=== PATIENT | female | born 1975 ===

== ENCOUNTER 2017-02-09 11:48 | Emergency (ER) | payer MEDICAID ==
[2017-02-09 11:55] VITALS: BMI 30.9
[2017-02-09] MEDS ORDERED: Albuterol-Ipratrop 3 mg / 0.5 (3 ml) UD INH STA ×4 (12:03→15:27)
[2017-02-09] MEDS ORDERED: Albuterol-Ipratrop 3 mg / 0.5 (3 ml) UD ONE ×3 (12:03→15:34)
[2017-02-09] MEDS ORDERED: Sodium Chloride 0.9% 1,000 ML IV ONE (12:15)
--- NOTE | 2017-02-09 12:30 | RAD ---
PROCEDURE: CHEST RADIOGRAPH, 1 VIEW HISTORY: Shortness of breath COMPARISON: 08/28/2016 FINDINGS: LUNGS: No focal infiltrate or effusion. PLEURA: No pneumothorax or pleural fluid seen. CARDIOVASCULAR: Normal. OSSEOUS STRUCTURES: Question patchy sclerosis at the right proximal humerus. VISUALIZED UPPER ABDOMEN: Normal. OTHER FINDINGS: None. IMPRESSION: No focal infiltrate or effusion.
[2017-02-09 12:39] LABS: BASO # 0.1 K/uL (0.0-0.2); BASO % 0.8 % (0.0-2.0); EOS # 0.7 K/uL (0.0-0.7); EOS % 8.2 % (0.0-4.0); HEMATOCRIT 40.3 % (34.0-47.0); LYMPH # 2.4 K/uL (1.0-4.3); LYMPH % 28.4 % (20.0-40.0); MEAN CELL VOLUME 83.8 fL (81.0-99.0); MEAN CORPUSCULAR HEMOGLOBIN 26.9 pg (27.0-31.0); MEAN CORPUSCULAR HGB CONC 32.1 g/dL (33.0-37.0); MONO # 0.5 K/uL (0.0-0.8); MONO % 6.4 % (0.0-10.0); RED CELL DISTRIBUTION WIDTH 15.2 % (11.5-14.5); WHITE BLOOD COUNT 8.4 K/uL (4.8-10.8)
[2017-02-09 12:47] LABS: CHLORIDE 102 mmol/L (98-107); SODIUM 137 mmol/L (132-148)
[2017-02-09 12:49] LABS: ALB/GLOB RATIO 1.1 (1.0-2.1); AST/SGOT 21 U/L (14-36); BILIRUBIN,TOTAL 0.6 mg/dL (0.2-1.3); CARBON DIOXIDE 26 mmol/L (22-30); GFR AFRICAN-AMERICAN > 60; TOTAL PROTEIN 7.1 g/dL (6.3-8.3)
[2017-02-09 12:50] LABS: ALKALINE PHOSPHATASE 130 U/L (38-126); ALT/SGPT 15 U/L (9-52); BLOOD UREA NITROGEN 8 mg/dL (7-17); CALCIUM 8.3 mg/dl (8.6-10.4); GLUCOSE,RANDOM 103 mg/dL (65-105)
[2017-02-09] MEDS ORDERED: Magnesium Sulfate 1 gm in D5W 1 GM/100 ML BAG IV ONE ×2 (13:00→14:00)
[2017-02-09 13:04] LABS: RBC URINE 24 /hpf (0-3); URINE BILIRUBIN NEGATIVE (NEGATIVE); URINE BLOOD 3+ (NEGATIVE); URINE COLOR Yellow (YELLOW); URINE GLUCOSE (UA) NORMAL (Normal); URINE KETONE NEGATIVE (NEGATIVE); URINE LEUKOCYTE ESTERASE 2+ Leu/uL (Negative); URINE PROTEIN NEGATIVE (NEGATIVE); URINE UROBILINOGEN NORMAL mg/dL (0.2-1.0); WBC URINE 18 /hpf (0-5)
--- NOTE | 2017-02-09 13:31 | C.PDOC ---
History Of Present Illness 41-year-old female PMHx includes Asthma, presents to the emergency department with complaints of shortness of breath, cough and wheezing. Patient states symptoms are consistent with prior asthma exacerbationS. Pt admits to hx of prior admissions for asthma. Hx limited due to clinical condition. Time Seen by Provider: 02/09/17 12:00 Chief Complaint (Nursing): Shortness Of Breath History Per: Patient History/Exam Limitations: clinical condition Current Symptoms Are (Timing): Still Present Current Respiratory Medications: See Home Med List Severity: Moderate Past Medical History Reviewed: Historical Data, Nursing Documentation, Vital Signs Vital Signs: Last Vital Signs Temp 98.3 F 02/09/17 16:26 Pulse 82 02/09/17 16:26 Resp 18 02/09/17 16:26 BP 141/83 02/09/17 16:26 Pulse Ox 96 02/09/17 17:38 - Medical History PMH: Anxiety, Asthma (HOSPITALIZED NOVEMBER 2015), Bronchitis, Depression (NOT ON MED. AT THIS TIME(01/02/16)), Fractures (Toe (3 years ago)), Gall Bladder Disease, Kidney Stones ([place]ER [place] Pneumonia, Chronic Kidney Disease, Rheumatoid Arthritis Surgical History: Cholecystectomy - [facility] Procedures INFLUENZA VACCINATION (08/21/13) NON-INVASIVE MECHANICAL VENTILATION (12/11/14) VACCINATION NEC (08/21/13) Family History: States: No Known Family Hx - Social History Hx Tobacco Use: No Hx Alcohol Use: Yes Hx Substance Use: No - Immunization History Hx Tetanus Toxoid Vaccination: No Hx Influenza Vaccination: Yes (2013) Hx Pneumococcal Vaccination: Yes (08/21/2013) Review Of Systems Except As Marked, All Systems Reviewed And Found Negative. Constitutional: Negative for: Fever Cardiovascular: Negative for: Chest Pain Respiratory: Positive for: Cough, Shortness of Breath, Wheezing Gastrointestinal: Positive for: Vomiting Physical Exam - Physical Exam Appears: Non-toxic, Other (Mild to moderate respiratory distress. Speaking in single words.) Skin: Warm, Dry, No Rash Head: Normacephalic Eye(s): bilateral: Normal Inspection Oral Mucosa: Moist Lips: Normal Appearing Cardiovascular: Rhythm Regular Respiratory: Accessory Muscle Use (mild), No Rales, No Rhonchi, Wheezing ( diffuse, expiratory wheezing B/L) Gastrointestinal/Abdominal: Normal Exam, Bowel Sounds, Soft, No Tenderness Extremity: Normal ROM, No Pedal Edema, No Calf Tenderness Neurological/Psych: Oriented x3 ED Course And Treatment - Laboratory Results Result Diagrams: 02/09/17 12:34 02/09/17 12:34 O2 Sat by Pulse Oximetry: 96 (RA) Pulse Ox Interpretation: Normal - Radiology CXR: Interpreted by Me, Viewed By Me CXR Interpretation: Yes: No Acute Disease (no infiltrates/effusions) Progress Note: Blood work, EKG, CXR, and UA/Upreg ordered and reviewed. Patient given IV solumedrol, multiple nebulizer treatments. 16:00- Patient reassessed, states she is feeling significantly better. On exam, she has good air entry B/ L without wheezing or accessory muscle use. CXR (-) for infiltrates, and blood work unremarkable. Peak flow approx 350, which is significantly improved from prior (200). Patient would like to be discharged home, was given Rx for prednisone, albuterol inhaler, albuterol ampules and tessalon. She was instructed to follow up with PMD in 1-2 days, and she understands she should return to ED if symptoms worsen. Reevaluation Time: 12:15 Reassessment Condition: Improved (On reassessment, patient mildly improved. On exam, she has expiratory wheezing B/L without accessory muscle use. IV Mag sulfate 2G and neb treatments ordered.) Critical Care Time - Critical Care Note Total Time (in mins): 40 Documented critical care: time excludes all time spent performing seperately billable procedures. Disposition Counseled Patient/Family Regarding: Studies Performed, Diagnosis, Need For Followup, Rx Given - Disposition Referrals: Hong Medel MD [Non-Staff] - Disposition: HOME/ ROUTINE Disposition Time: 16:15 Condition: STABLE Additional Instructions: FOLLOW UP WITH YOUR DOCTOR IN 1-2 DAYS USE MEDICATIONS DIRECTED RETURN TO ER IMMEDIATELY IF SYMPTOMS WORSEN Prescriptions: Albuterol 0.5% [Albuterol 0.5% Inhal Bekah (2.5 mg/0.5 ml) UD] 2.5 mg IH Q6 PRN # 1 bottle PRN Reason: Wheezing Albuterol HFA [Ventolin HFA 90 mcg/actuation (8 g)] 0.09 mg IH Q4 PRN #1 puff PRN Reason: Wheezing Benzonatate [Tessalon Perles] 100 mg PO BID PRN #15 sgl PRN Reason: Cough predniSONE [predniSONE Tab] 40 mg PO DAILY #8 tab Instructions: Asthma (ED) Print Language: GREEK - POA Present On Arrival: None - Clinical Impression Clinical Impression: Asthma exacerbation - Scribe Statement The provider has reviewed the documentation as recorded by the Lauraibvinod Melendez All medical record entries made by the Lauraibe were at my direction and personally dictated by me. I have reviewed the chart and agree that the record accurately reflects my personal performance of the history, physical exam, medical decision making, and the department course for this patient. I have also personally directed, reviewed, and agree with the discharge instructions and disposition.
[2017-02-09 16:26] VITALS: BP 141/83; PULSE 82; RESP 18; TEMP 98.3
[2017-02-09 17:38] VITALS: O2SAT 96
--- NOTE | 2017-02-14 18:16 | CARD ---
APPROVED REPORT EKG Measurement Heart [id number] <Conclusion> Normal sinus rhythm with sinus arrhythmia Normal ECG
== END 2017-02-09 16:27 | disposition home or self-care (01) ==
LOC: C.ER 11:48 → UNDOADMOB 13:39 → C.6T 13:39 → C.ER 16:27
DX: J45.901 Unspecified asthma with (acute) exacerbation (principal)
CPT/HCPCS: 71010; 80053; 81001; 84484; 84703; 85025; 87040; 94640; 96361; 96365; 96366; 96375; 99285; J2930; J3475; J7040

== ENCOUNTER 2017-04-29 12:06 | Observation (INO) | payer MEDICAID ==
[2017-04-29 12:06] VITALS: BMI 30.9
[2017-04-29] MEDS ORDERED: Albuterol-Ipratrop 3 mg / 0.5 (3 ml) UD ONE (12:15)
[2017-04-29] MEDS ORDERED: Albuterol-Ipratrop 3 mg / 0.5 (3 ml) UD INH STA ×4 (12:22→12:56)
[2017-04-29] MEDS ORDERED: MethylPREDNISolone 40 mg Vial IVP STA (12:23)
[2017-04-29] MEDS ORDERED: Magnesium Sulfate 1 gm in D5W 1 GM/100 ML BAG IVPB ONE ×2 (12:32→13:20)
--- NOTE | 2017-04-29 12:33 | C.PDOC ---
History Of Present Illness A 41 y/o F with hx of asthma nad Hx of shoulder surgery a week prior, c/o SOB that occurred today. Patient notes while walking up the stairs today she felt an acute SOB, where she then used her nebulizer with mild relief. Denies fever, chills, cough, URI symptoms, or any other complaints. Time Seen by Provider: 04/29/17 12:23 Chief Complaint (Nursing): Respiratory Distress History Per: Patient History/Exam Limitations: no limitations Onset/Duration Of Symptoms: Hrs Current Symptoms Are (Timing): Still Present Initiating Event: Other (Walking up the stairs) Current Respiratory Medications: Albuterol Severity: Mild Recent travel outside of the [place]: No Additional History Per: Patient Past Medical History Reviewed: Historical Data, Nursing Documentation, Vital Signs Vital Signs: Last Vital Signs Temp 97.8 F 04/29/17 14:38 Pulse 79 04/29/17 14:38 Resp 20 04/29/17 14:38 BP 125/77 04/29/17 14:38 Pulse Ox 94 L 04/29/17 14:38 - Medical History PMH: Anxiety, Asthma (HOSPITALIZED NOVEMBER 2015), Bronchitis, Depression (NOT ON MED. AT THIS TIME(01/02/16)), Fractures (Toe (3 years ago)), Gall Bladder Disease, Kidney Stones (LASER [place].), Pneumonia, Chronic Kidney Disease, Rheumatoid Arthritis Surgical History: Cholecystectomy - [facility] Procedures INFLUENZA VACCINATION (08/21/13) NON-INVASIVE MECHANICAL VENTILATION (12/11/14) VACCINATION NEC (08/21/13) Family History: States: Unknown Family Hx - Social History Hx Tobacco Use: No Hx Alcohol Use: Yes Hx Substance Use: No - Immunization History Hx Tetanus Toxoid Vaccination: No Hx Influenza Vaccination: Yes Hx Pneumococcal Vaccination: Yes (08/21/2013) Review Of Systems Except As Marked, All Systems Reviewed And Found Negative. Constitutional: Negative for: Fever, Chills ENT: Negative for: Ear Pain, Nose Discharge, Nose Congestion, Throat Pain Cardiovascular: Negative for: Chest Pain, Palpitations Respiratory: Positive for: Shortness of Breath, SOB with Excertion, Wheezing. Negative for: Cough Gastrointestinal: Negative for: Nausea, Vomiting, Abdominal Pain, Diarrhea, Constipation Genitourinary: Negative for: Dysuria Skin: Negative for: Rash Neurological: Negative for: Weakness Psych: Negative for: Anxiety Physical Exam - Physical Exam Appears: Well, Non-toxic, No Acute Distress Skin: Warm, Dry Head: Atraumatic, Normacephalic Eye(s): bilateral: Normal Inspection, PERRL, EOMI Oral Mucosa: Moist Neck: Supple Chest: Symmetrical Cardiovascular: Rhythm Regular (Tachycardic) Respiratory: Decreased Breath Sounds, Accessory Muscle Use (Tachypnea), Wheezing (Bilateral) Gastrointestinal/Abdominal: Soft, No Tenderness, No Mass, No Distention Back: Normal Inspection, No CVA Tenderness Extremity: Normal ROM (x4) Neurological/Psych: Oriented x3, Normal Speech, Normal Cognition ED Course And Treatment - Laboratory Results Result Diagrams: 04/29/17 12:39 04/29/17 12:39 O2 Sat by Pulse Oximetry: 97 (Nebulizer treatment) Pulse Ox Interpretation: Normal Medical Decision Making Medical Decision Making: Impression: A 41 y/o F c/o SOB that occurred today. Hx of shoulder surgery a week prior. Plans: * Blood work up * CXR * Albuterol * Nebulizer treatment * Reassess Symptoms appears consistent with asthma exacerbation but will r/o PE due to recent surgery. 12:56PM Cxray negative 1:10PM D-dimer negative 2:30PM Persistent wheezing after 4 duonebs, solumedrol and Mg, O2 sat 94% RA. Transfer to med/sx under Dr. Haddad Disposition - Disposition Disposition: HOSPITALIZED Disposition Time: 14:30 Condition: FAIR - Clinical Impression Clinical Impression: Elevated LFTs, Asthma, Asthma exacerbation - Scribe Statement The provider has reviewed the documentation as recorded by the Lauraibvinod rose All medical record entries made by the Lauraibvinod were at my direction and personally dictated by me. I have reviewed the chart and agree that the record accurately reflects my personal performance of the history, physical exam, medical decision making, and the department course for this patient. I have also personally directed, reviewed, and agree with the discharge instructions and disposition.
[2017-04-29] MEDS: Magnesium Sulfate 1 gm in D5W 1 GM/100 ML BAG IVPB SCH ×2 (12:42→13:27)
[2017-04-29 12:43] LABS: BASO # 0.1 K/uL (0.0-0.2); BASO % 0.7 % (0.0-2.0); EOS # 0.6 K/uL (0.0-0.7); EOS % 6.4 % (0.0-4.0); HEMOGLOBIN 13.1 g/dL (11.0-16.0); LYMPH # 2.5 K/uL (1.0-4.3); MEAN CELL VOLUME 85.5 fL (81.0-99.0); MEAN CORPUSCULAR HEMOGLOBIN 28.3 pg (27.0-31.0); MEAN CORPUSCULAR HGB CONC 33.2 g/dL (33.0-37.0); MEAN PLATELET VOLUME 7.5 fL (7.2-11.7); MONO # 0.6 K/uL (0.0-0.8); MONO % 6.4 % (0.0-10.0); NEUT # 5.5 K/uL (1.8-7.0); NEUT % 59.5 % (50.0-75.0); RBC 4.63 Mil/uL (3.80-5.20); RED CELL DISTRIBUTION WIDTH 15.1 % (11.5-14.5); WHITE BLOOD COUNT 9.3 K/uL (4.8-10.8)
--- NOTE | 2017-04-29 12:50 | RAD ---
HISTORY: chest pain COMPARISON: Chest x-ray performed 02/09/17 TECHNIQUE: Chest, one view. FINDINGS: Examination limited by habitus. LUNGS: No focal consolidation. Please note that chest x-ray has limited sensitivity for the detection of pulmonary masses. PLEURA: No significant pleural effusion identified. No definite pneumothorax . CARDIOVASCULAR: The cardiomediastinal silhouette appears within normal limits of size. OSSEOUS STRUCTURES: No acute osseous abnormality identified. VISUALIZED UPPER ABDOMEN: Unremarkable. OTHER FINDINGS: None. IMPRESSION: No focal consolidation, significant pleural effusion, or definite pneumothorax identified.
[2017-04-29 13:05] LABS: ALBUMIN 3.6 g/dL (3.5-5.0)
[2017-04-29 13:08] LABS: GFR AFRICAN-AMERICAN > 60; GFR NON-AFRICAN AMERICAN > 60
[2017-04-29 13:09] LABS: ALT/SGPT 55 U/L (9-52); AST/SGOT 43 U/L (14-36); BLOOD UREA NITROGEN 10 mg/dL (7-17); CALCIUM 8.7 mg/dl (8.6-10.4)
[2017-04-29] MEDS ORDERED: Morphine 4 MG/ML VIAL ONE (13:29)
--- NOTE | 2017-04-29 16:30 | CP.PCM.PN ---
Subjective - Date & Time of Evaluation Date of Evaluation: 04/29/17 Time of Evaluation: 16:27 - Subjective Subjective: Medicine note for Dr. Haddad's Service cc: "shortness of breath" HPI: Patient is a 39 yo female with a Hx of asthma, RA, and depression/anxiety who presents to the ED with acute asthma exacerbation that did not respond to home treatment with nebulizer or ventolin inhaler. The patient states that this afternoon she became acutely short of breath. She took her home ventolin inhaler but her breathing did not improve. This patient has multiple previous hospitalizations for asthma exacerbation. She has never been intubation but has had to used bipap before. She denies any URI symptoms, cough, sore, dysphagia, or odynophagia. She denies any fever, chills, vomiting, diarrhea, constipation, dysuria, urinary frequency, kidney pain, change in vision, change in hearing, dizziness, chest pain, numbness, tingling, and focal weakness. 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 by Dr. Escobar. She has been on antibiotics at home for this but does not know what she is taking. 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 Haddad. All management as per Dr. Haddad.
[2017-04-29] MEDS: oxyCODONE 5 mg Immediate Release Tab PO PRN (18:18)
[2017-04-29] MEDS: MethylPREDNISolone 40 mg Vial IVP SCH (18:18)
[2017-04-29] MEDS ORDERED: Bisacodyl 5mg EC Tab PO ONE (18:39)
[2017-04-29] MEDS ORDERED: Azithromycin 500 MG in Sodium Chloride 0.9% 250 ML IVPB SCH (19:00)
[2017-04-29] MEDS: Albuterol-Ipratrop 3 mg / 0.5 (3 ml) UD INH SCH (20:21)
[2017-04-29] MEDS: oxyCODONE 10 mg ER Tab (oxyCONTIN) PO SCH (21:45)
[2017-04-30 01:20] VITALS: RESP 20; O2SAT 94
[2017-04-30] MEDS: Albuterol-Ipratrop 3 mg / 0.5 (3 ml) UD INH SCH ×3 (01:22→14:00)
[2017-04-30] MEDS: MethylPREDNISolone 40 mg Vial IVP SCH ×2 (01:59→09:39)
[2017-04-30] MEDS: oxyCODONE 5 mg Immediate Release Tab PO PRN (02:05)
[2017-04-30 07:59] LABS: BASO % 0.1 % (0.0-2.0); HEMOGLOBIN 12.4 g/dL (11.0-16.0); LYMPH # 1.1 K/uL (1.0-4.3); LYMPH % 7.6 % (20.0-40.0); MEAN CELL VOLUME 85.2 fL (81.0-99.0); MEAN CORPUSCULAR HEMOGLOBIN 28.2 pg (27.0-31.0); MEAN CORPUSCULAR HGB CONC 33.1 g/dL (33.0-37.0); MEAN PLATELET VOLUME 8.1 fL (7.2-11.7); MONO # 0.4 K/uL (0.0-0.8); MONO % 2.5 % (0.0-10.0); NEUT # 13.6 K/uL (1.8-7.0); NEUT % 89.8 % (50.0-75.0); PLATELET COUNT 362 K/uL (130-400); RBC 4.38 Mil/uL (3.80-5.20)
[2017-04-30 08:01] VITALS: BP 127/77; TEMP 98
[2017-04-30 08:02] LABS: ALBUMIN 3.6 g/dL (3.5-5.0)
[2017-04-30 08:05] LABS: AST/SGOT 31 U/L (14-36); BLOOD UREA NITROGEN 11 mg/dL (7-17); GFR AFRICAN-AMERICAN > 60; GFR NON-AFRICAN AMERICAN > 60
[2017-04-30 08:06] LABS: ALT/SGPT 43 U/L (9-52)
[2017-04-30 08:23] LABS: WHITE BLOOD COUNT 15.1 K/uL (4.8-10.8)
[2017-04-30 08:28] VITALS: PULSE 80
[2017-04-30] MEDS: oxyCODONE 10 mg ER Tab (oxyCONTIN) PO SCH (09:37)
[2017-04-30] MEDS: Enoxaparin 40 mg Syringe SC SCH ×2 (09:39→09:46)
[2017-04-30 10:49] LABS: LYMPHOCYTE 8 % (20-40); MONOCYTE 2 % (0-10); NEUTROPHIL 90 % (50-75); PLATELET ESTIMATE NORMAL (NORMAL); TOTAL CELLS COUNTED 100
--- NOTE | 2017-04-30 11:49 | CP.PCM.PN ---
Subjective - Date & Time of Evaluation Date of Evaluation: 04/30/17 Time of Evaluation: 09:05 - Subjective Subjective: PGY-[address] Haddad Patient seen and examined at bedside. No acute events overnight. Patient reports her shortness of breath and cough improved. Patient has pain at her right shoulder from her recent orthopedic surgery. Patient states she has an appointment to see her surgeon on Wednesday. Patient denies having headache, fever , chills, SOB, chest pain, nausea, vomiting, or diarrhea. Objective - Vital Signs/Intake and Output Vital Signs (last 24 hours): Temp Pulse Resp BP Pulse Ox 98 F 80 20 127/77 94 L 04/30/17 08:00 04/30/17 08:26 04/30/17 08:00 04/30/17 08:00 04/30/17 08:00 Intake and Output: 04/30/17 04/30/17 06:59 18:59 Intake Total 1610 Balance 1610 - Medications Medications: Current Medications Albuterol/Ipratropium (Duoneb 3 Mg/0.5 Mg (3 Ml) Ud) 3 ml INH RQ6 [facility] Last Admin: 04/30/17 07:56 Dose: 3 ml Enoxaparin Sodium (Lovenox) 40 mg SC DAILY [facility] Last Admin: 04/30/17 09:46 Dose: Not Given Azithromycin 500 mg/ Sodium (Chloride) 250 mls @ 250 mls/hr IVPB Q24H [facility] Last Admin: 04/29/17 20:04 Dose: 250 mls/hr Methylprednisolone (Solu-Medrol) 40 mg IVP Q12 [facility] Oxycodone HCl (Oxycontin Extended Release Tab) 10 mg PO Q12 [facility] Stop: 05/02/17 22:01 Last Admin: 04/30/17 09:37 Dose: 10 mg Oxycodone HCl (Oxycodone Immediate Release Tab) 5 mg PO Q4H PRN PRN Reason: FOR BREAKTHROUGH PAIN Last Admin: 04/30/17 02:05 Dose: 5 mg Pantoprazole Sodium (Protonix Inj) 40 mg IVP DAILY [facility] Last Admin: 04/30/17 09:39 Dose: 40 mg - Labs Labs: 04/30/17 07:49 04/30/17 07:49 - Constitutional Appears: Well, No Acute Distress - Head Exam Head Exam: ATRAUMATIC, NORMAL INSPECTION - Eye Exam Eye Exam: Normal appearance - ENT Exam ENT Exam: Mucous Membranes Moist - Neck Exam Neck Exam: Normal Inspection - Respiratory Exam Respiratory Exam: Clear to Ausculation Bilateral, NORMAL BREATHING PATTERN. absent: Wheezes, Respiratory Distress - Cardiovascular Exam Cardiovascular Exam: REGULAR RHYTHM, +S1, +S2. 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 Haddad. All management as per Dr. Haddad.
[2017-04-30] MEDS ORDERED: MethylPREDNISolone 40 mg Vial IVP SCH (22:00)
--- NOTE | 2017-05-02 02:53 | HP ---
HISTORY OF PRESENT ILLNESS: A 41-year-old female with chief complaint of weakness, fatigue, tiredness and shortness of breath. The patient came to the hospital, advised admission. PHYSICAL EXAMINATION GENERAL: The patient is awake, alert and oriented. VITAL SIGNS: Temperature 98 and pulse is 74. HEENT: Normal limits. NECK: Supple. CHEST: Symmetrical. HEART: Regular. ABDOMEN: Soft. EXTREMITIES: No edema. IMPRESSION: The patient suffers from bronchial asthma, bronchitis. The patient on bed rest, supportive care. Victorino Haddad MD
== END 2017-04-30 15:20 | disposition home or self-care (01) ==
LOC: C.ER 12:06 → C.9E 14:29 → C.3T 15:58
PROVIDERS: ADMIT Internal Medicine Pulmonary Disease; ATTEND Internal Medicine Pulmonary Disease
DX: J45.901 Unspecified asthma with (acute) exacerbation (principal); F41.9 Anxiety disorder, unspecified; M06.9 Rheumatoid arthritis, unspecified
CPT/HCPCS: 36415; 71010; 80053; 85025; 85378; 94640; 96365; 96374; 99285; C9113; G0378; J0456; J2270; J2920; J3475; J7050

== ENCOUNTER 2017-10-20 15:45 | Emergency (ER) | payer MEDICAID ==
[2017-10-20 15:46] VITALS: BMI 30.9
[2017-10-20 16:32] VITALS: TEMP 98.9
[2017-10-20] MEDS ORDERED: Albuterol-Ipratrop 3 mg / 0.5 (3 ml) UD ONE (16:41)
[2017-10-20] MEDS ORDERED: Albuterol-Ipratrop 3 mg / 0.5 (3 ml) UD INH STA (16:48)
[2017-10-20] MEDS ORDERED: Albuterol 0.083% Inhal Sol (2.5 mg/3 mL) UD IH STA (17:14)
[2017-10-20] MEDS ORDERED: Albuterol 0.083% Inhal Sol (2.5 mg/3 mL) UD ONE (17:22)
[2017-10-20 18:45] VITALS: BP 122/82; PULSE 86; RESP 18; O2SAT 98
--- NOTE | 2017-10-20 19:38 | C.PDOC ---
History Of Present Illness 41 y/o female presents to the ER complaining of runny nose, non-productive cough , wheezing, and pleuritic chest pain which has been present for about 1 week. Patient states that she has been using nebulizer treatment at home w/o relief. Patient denies having fever. Of note, patient states that she has a history of asthma and this is similar to prior exacerbations. Time Seen by Provider: 10/20/17 16:40 Chief Complaint (Nursing): Cough, Cold, Congestion History Per: Patient History/Exam Limitations: no limitations Onset/Duration Of Symptoms: Days Current Symptoms Are (Timing): Still Present Severity: Moderate Past Medical History Reviewed: Historical Data, Nursing Documentation, Vital Signs Vital Signs: Last Vital Signs Temp 98.9 F 10/20/17 18:44 Pulse 86 10/20/17 18:44 Resp 18 10/20/17 18:44 BP 122/82 10/20/17 18:44 Pulse Ox 98 10/20/17 21:33 - Medical History PMH: Anxiety, Asthma (HOSPITALIZED NOVEMBER 2015), Bronchitis, Depression (NOT ON MED. AT THIS TIME(01/02/16)), Fractures (Toe (3 years ago)), Gall Bladder Disease, Kidney Stones (LASER [place].), Pneumonia, Chronic Kidney Disease, Rheumatoid Arthritis Surgical History: Cholecystectomy - [facility] Procedures INFLUENZA VACCINATION (08/21/13) NON-INVASIVE MECHANICAL VENTILATION (12/11/14) VACCINATION NEC (08/21/13) Family History: States: No Known Family Hx - Social History Hx Tobacco Use: No Hx Alcohol Use: No Hx Substance Use: No - Immunization History Hx Tetanus Toxoid Vaccination: No Hx Influenza Vaccination: No Hx Pneumococcal Vaccination: No Review Of Systems Except As Marked, All Systems Reviewed And Found Negative. Constitutional: Negative for: Fever, Chills ENT: Positive for: Nose Discharge Cardiovascular: Positive for: Chest Pain. Negative for: Palpitations Respiratory: Positive for: Cough, Shortness of Breath, Wheezing Gastrointestinal: Negative for: Nausea, Vomiting, Abdominal Pain, Diarrhea Skin: Negative for: Rash Physical Exam - Physical Exam Appears: Well, Non-toxic, No Acute Distress, Other (speaking in full sentences) Skin: Normal Color, Warm, No Rash Eye(s): bilateral: Normal Inspection Nose: Discharge (rhinorrhea) Oral Mucosa: Moist Throat: Normal, No Erythema, No Exudate Neck: Supple Cardiovascular: Rhythm Regular Respiratory: Normal Breath Sounds, No Accessory Muscle Use, No Rales, No Rhonchi , Wheezing (expiratory wheezing bilaterally) Gastrointestinal/Abdominal: Normal Exam, Bowel Sounds, Soft, No Tenderness Extremity: Normal ROM, No Pedal Edema, No Calf Tenderness Neurological/Psych: Oriented x3 ED Course And Treatment O2 Sat by Pulse Oximetry: 98 (RA) Pulse Ox Interpretation: Normal Progress Note: Patient given PO Prednisone and 2 Albuterol nebulizer treatments. Reevaluation Time: 18:30 Reassessment Condition: Improved (On reassessment, patient is resting comfortably, in no distress. She states she feels much better. On exam, she has good air entry B/L without wheezing or accessory muscle use. Peak flow is 350. Patient is comfortable being discharged home with Rxs for prednisone, albuterol, etc. She was instructed to follow up with PMD/clinic in 1-2 days, and understands she should return to ED if symptoms worsen.) Disposition Counseled Patient/Family Regarding: Studies Performed, Diagnosis, Need For Followup, Rx Given - Disposition Referrals: [facility] [Outside] Disposition: HOME/ ROUTINE Disposition Time: 18:30 Condition: STABLE Instructions: Upper Respiratory Infection (ED), Asthma (ED) Forms: [employer] (Hong Konger) Print Language: SWEDISH - Clinical Impression Clinical Impression: Viral disease, Upper respiratory infection, Asthma attack - Scribe Statement The provider has reviewed the documentation as recorded by the Lauraibvinod Haas Provider Attestation: All medical record entries made by the Scribe were at my direction and personally dictated by me. I have reviewed the chart and agree that the record accurately reflects my personal performance of the history, physical exam, medical decision making, and the department course for this patient. I have also personally directed, reviewed, and agree with the discharge instructions and disposition.
--- NOTE | 2017-10-21 12:44 | CARD ---
APPROVED REPORT EKG Measurement Heart [id number] <Conclusion> Normal sinus rhythm with sinus arrhythmia Normal ECG
== END 2017-10-20 18:44 | disposition home or self-care (01) ==
LOC: C.ER 15:45
DX: B34.9 Viral infection, unspecified (principal); J06.9 Acute upper respiratory infection, unspecified; J45.909 Unspecified asthma, uncomplicated

== ENCOUNTER 2017-12-31 11:23 | Emergency (ER) | payer MEDICAID ==
[2017-12-31 11:23] VITALS: BMI 30.9
[2017-12-31 11:28] VITALS: BP 147/85; PULSE 82; TEMP 97.8; O2SAT 98
[2017-12-31] MEDS ORDERED: Lidocaine 5% Patch TD STA (12:02)
--- NOTE | 2017-12-31 12:02 | C.PDOC ---
History Of Present Illness 42 year old female presents to the ED c/o bilateral lower back pain right > left for 3 days. Patient reports pain in her right lower back radiates to her right thigh. back pain worsens with movement. Patient sts she's taking Tylenol with mild temporary improvement. Patient denies fever, chills, abdominal pain, urinary/bowel incontinence, saddle anesthesia, weakness, numbness. Time Seen by Provider: 12/31/17 11:43 Chief Complaint (Nursing): Back Pain History Per: Patient History/Exam Limitations: no limitations Onset/Duration Of Symptoms: Days Current Symptoms Are (Timing): Still Present Quality Of Discomfort: "Pain" Previous Symptoms: Back Pain Exacerbating Factor(s): Movement Recent travel outside of the [place]: No Additional History Per: Patient Past Medical History Reviewed: Historical Data, Nursing Documentation, Vital Signs Vital Signs: Last Vital Signs Temp 97.8 F 12/31/17 11:25 Pulse 82 12/31/17 11:25 Resp 20 12/31/17 12:24 BP 147/85 12/31/17 11:25 Pulse Ox 98 12/31/17 12:43 - Medical History PMH: Anxiety, Asthma (HOSPITALIZED NOVEMBER 2015), Bronchitis, Depression (NOT ON MED. AT THIS TIME(01/02/16)), Fractures (Toe (3 years ago)), Gall Bladder Disease, Kidney Stones (LASER [place] Pneumonia, Chronic Kidney Disease, Rheumatoid Arthritis Surgical History: Cholecystectomy - [facility] Procedures INFLUENZA VACCINATION (08/21/13) NON-INVASIVE MECHANICAL VENTILATION (12/11/14) VACCINATION NEC (08/21/13) Family History: States: Unknown Family Hx - Social History Hx Tobacco Use: No Hx Alcohol Use: No Hx Substance Use: No - Immunization History Hx Tetanus Toxoid Vaccination: No Hx Influenza Vaccination: Yes Hx Pneumococcal Vaccination: No Review Of Systems Constitutional: Negative for: Fever, Chills Cardiovascular: Negative for: Chest Pain Respiratory: Negative for: Shortness of Breath Gastrointestinal: Negative for: Abdominal Pain Genitourinary: Negative for: Dysuria, Incontinence, Hematuria Musculoskeletal: Positive for: Back Pain Skin: Negative for: Rash Neurological: Negative for: Weakness, Numbness Physical Exam - Physical Exam Appears: Non-toxic, No Acute Distress Skin: Normal Color, Warm, Dry Head: Atraumatic, Normacephalic Eye(s): bilateral: Normal Inspection Nose: No Discharge Oral Mucosa: Moist Neck: Normal ROM, Supple Gastrointestinal/Abdominal: Soft, No Tenderness, No Guarding, No Rebound Back: No Vertebral Tenderness, Other (B/L sciatic notch tenderness) Extremity: Normal ROM, No Tenderness, No Calf Tenderness, Capillary Refill (< 2 seconds), No Swelling Pulses: Left Dorsalis Pedis: Normal, Right Dorsalis Pedis: Normal Neurological/Psych: Oriented x3, Normal Motor, Normal Sensation Gait: Steady ED Course And Treatment O2 Sat by Pulse Oximetry: 98 (On RA) Pulse Ox Interpretation: Normal Medical Decision Making Medical Decision Making: Impression: lower back pain Plan: * Lidoderm 1 ea TD * Toradol 30 mg IM home with naproxen, tylenol and muscle relaxant. Disposition Counseled Patient/Family Regarding: Diagnosis, Need For Followup, Rx Given - Disposition Referrals: Shaik Donahue MD [Staff Provider] - Disposition: HOME/ ROUTINE Disposition Time: 12:14 Condition: GOOD Additional Instructions: Please remove patch in 12 hours. Take Tylenol and Naproxen for pain. Take muscle relaxant (up to three times a day, every 8 hours) if not working or driving- otherwise just take at bedtime. Warm compresses to painful areas. Follow up with your PMD in a week. Prescriptions: Acetaminophen [Tylenol 325mg tab] 650 mg PO Q4 #50 tab Cyclobenzaprine [Cyclobenzaprine HCl] 10 mg PO Q8 #9 tab Naproxen 500 mg PO BID #20 tab Instructions: Sciatica (DC), Sciatica Exercises Forms: [facility] (Greenlandic), General Discharge Instructions - Clinical Impression Clinical Impression: Sciatica - PA / CONTACT LENS POLISHER / Resident Statement MD/DO has reviewed & agrees with the documentation as recorded. - Scribe Statement The provider has reviewed the documentation as recorded by the Scribe Monty Mishra All medical record entries made by the Scribe were at my direction and personally dictated by me. I have reviewed the chart and agree that the record accurately reflects my personal performance of the history, physical exam, medical decision making, and the department course for this patient. I have also personally directed, reviewed, and agree with the discharge instructions and disposition.
[2017-12-31] MEDS ORDERED: Lidocaine 5% Patch TD ONE (12:07)
[2017-12-31 12:25] VITALS: RESP 20
== END 2017-12-31 12:24 | disposition home or self-care (01) ==
LOC: C.ER 11:23
DX: M54.30 Sciatica, unspecified side (principal)
CPT/HCPCS: 96372; 99283; J1885

== ENCOUNTER 2018-03-15 11:56 | Emergency (ER) | payer MEDICAID ==
[2018-03-15 11:56] VITALS: BMI 30.9
[2018-03-15] MEDS ORDERED: Albuterol-Ipratrop 3 mg / 0.5 (3 ml) UD INH STA ×3 (12:05→12:29)
[2018-03-15] MEDS ORDERED: Albuterol-Ipratrop 3 mg / 0.5 (3 ml) UD ONE ×2 (12:05→12:28)
--- NOTE | 2018-03-15 12:54 | C.PDOC ---
History Of Present Illness 42-year-old female, presents to the emergency department with complaints of wheezing that started this morning. Patient admits to a Hx of asthma, and reports this feels similar to her prior exacerbation symptoms. Denies chest pain , back pain, nausea/vomiting, fever, chills, or any other associated symptoms. No other complaints at this time. Time Seen by Provider: 03/15/18 12:26 Chief Complaint (Nursing): Shortness Of Breath History Per: Patient History/Exam Limitations: no limitations Onset/Duration Of Symptoms: Days Current Symptoms Are (Timing): Still Present Initiating Event: Other (Hot climate) Associated Symptoms: denies: Fever, Chills, Sweating, Bloody Cough, Leg/Calf Pain Recent travel outside of the [place]: No Past Medical History Reviewed: Historical Data, Nursing Documentation, Vital Signs Vital Signs: Last Vital Signs Temp 98.6 F 03/15/18 14:41 Pulse 86 03/15/18 14:41 Resp 13 03/15/18 14:41 BP 127/62 03/15/18 14:41 Pulse Ox 96 03/15/18 14:41 - Medical History PMH: Anxiety, Asthma (HOSPITALIZED NOVEMBER 2015), Bronchitis, Depression (NOT ON MED. AT THIS TIME(01/02/16)), Fractures (Toe (3 years ago)), Gall Bladder Disease, Kidney Stones (LASER [place].), Pneumonia, Chronic Kidney Disease, Rheumatoid Arthritis Surgical History: Cholecystectomy - [facility] Procedures INFLUENZA VACCINATION (08/21/13) NON-INVASIVE MECHANICAL VENTILATION (12/11/14) VACCINATION NEC (08/21/13) Family History: States: No Known Family Hx - Social History Hx Tobacco Use: No Hx Alcohol Use: No Hx Substance Use: No - Immunization History Hx Tetanus Toxoid Vaccination: No Hx Influenza Vaccination: Yes Hx Pneumococcal Vaccination: No Review Of Systems Except As Marked, All Systems Reviewed And Found Negative. Constitutional: Negative for: Fever, Chills Cardiovascular: Negative for: Chest Pain Respiratory: Positive for: Shortness of Breath, Wheezing. Negative for: SOB with Excertion, Pleuritic Pain Gastrointestinal: Negative for: Nausea, Vomiting Musculoskeletal: Negative for: Back Pain Skin: Negative for: Rash Neurological: Negative for: Weakness, Numbness Physical Exam - Physical Exam Appears: Non-toxic, No Acute Distress, Other (speaking in full sentences) Skin: Normal Color, Warm, Dry, No Rash Head: Atraumatic, Normacephalic Eye(s): bilateral: Normal Inspection, PERRL, EOMI Ear(s): Bilateral: Normal Nose: Normal Oral Mucosa: Moist Lips: Normal Appearing Throat: No Erythema, No Exudate Neck: Normal ROM, Supple Chest: Symmetrical, No Deformity, No Tenderness Cardiovascular: Rhythm Regular, No Friction Rub, No Murmur Respiratory: No Decreased Breath Sounds, No Accessory Muscle Use, No Rales, No Rhonchi, Wheezing (B/L expiratory) Gastrointestinal/Abdominal: Soft, No Tenderness Back: Normal Inspection Extremity: Normal ROM, No Deformity, No Swelling Neurological/Psych: Oriented x3, Normal Speech, Normal Motor Gait: Steady ED Course And Treatment - Laboratory Results Result Diagrams: 03/15/18 13:08 03/15/18 13:08 O2 Sat by Pulse Oximetry: 98 (RA) Pulse Ox Interpretation: Normal Critical Care Time - Critical Care Note Total Time (in mins): 35 Documented critical care: time excludes all time spent performing seperately billable procedures. Medical Decision Making Medical Decision Making: The patient came in with mild-moderate respiratory distress. Duonebs x1 given, wheezing continued. Another 2 Duonebs and Solu-medrol given. On re-exam, the patient reports improvement of symptoms. Lungs are CTA, heart is RRR, abdomen is soft, non-tender and tolerating PO well. Ambulatory in the ED with steady gait. Follow up with the medical doctor in 1-2 days without fail. Return if worsened. Disposition - Disposition Referrals: Shaik Donahue MD [Staff Provider] - Disposition: HOME/ ROUTINE Disposition Time: 13:00 Condition: STABLE Additional Instructions: Follow up with the medical doctor in 1-2 days without fail. Return if worsened. Prescriptions: Albuterol HFA [Ventolin HFA 90 mcg/actuation (8 g)] 1 puff IH Q6 #100 puff Loratadine [Claritin] 10 mg PO DAILY #10 tab predniSONE [Prednisone] 20 mg PO BID #10 tab Promethazine/Codeine [Phenergan/Codeine Oral Syrup] 5 ml PO Q8 PRN #50 ml PRN Reason: Cough Instructions: Asthma in Adults Forms: [facility] (Turkmen), Work Excuse - Clinical Impression Clinical Impression: Exacerbation of asthma - Scribe Statement The provider has reviewed the documentation as recorded by the Scribe (Fariba Veronica) All medical record entries made by the Scribe were at my direction and personally dictated by me. I have reviewed the chart and agree that the record accurately reflects my personal performance of the history, physical exam, medical decision making, and the department course for this patient. I have also personally directed, reviewed, and agree with the discharge instructions and disposition.
[2018-03-15 13:18] LABS: BASO % 0.8 % (0.0-2.0); EOS # 0.4 K/uL (0.0-0.7); EOS % 6.5 % (0.0-4.0); HEMOGLOBIN 14.2 g/dL (11.0-16.0); LYMPH # 2.2 K/uL (1.0-4.3); LYMPH % 34.2 % (20.0-40.0); MEAN CELL VOLUME 86.6 fL (81.0-99.0); MEAN CORPUSCULAR HEMOGLOBIN 28.6 pg (27.0-31.0); MEAN PLATELET VOLUME 8.2 fL (7.2-11.7); MONO # 0.8 K/uL (0.0-0.8); MONO % 11.9 % (0.0-10.0); NEUT % 46.6 % (50.0-75.0); NRBC % 0.1 % (0.0-2.0); RBC 4.97 Mil/uL (3.80-5.20); RED CELL DISTRIBUTION WIDTH 14.2 % (11.5-14.5); WHITE BLOOD COUNT 6.4 K/uL (4.8-10.8)
[2018-03-15 13:31] LABS: ALB/GLOB RATIO 1.2 (1.0-2.1); ALBUMIN 4.1 g/dL (3.5-5.0); ALT/SGPT 34 U/L (9-52); AST/SGOT 32 U/L (14-36); BLOOD UREA NITROGEN 8 mg/dL (7-17); GFR AFRICAN-AMERICAN > 60; GFR NON-AFRICAN AMERICAN > 60
--- NOTE | 2018-03-15 13:57 | RAD ---
HISTORY: asthma, SOB COMPARISON: Comparison chest dated 04/29/2017 FINDINGS: LUNGS: No active pulmonary disease. PLEURA: No significant pleural effusion identified, no pneumothorax apparent. CARDIOVASCULAR: Normal. OSSEOUS STRUCTURES: No sig incidental note made of mild sclerotic changes right humeral head nonspecific. VISUALIZED UPPER ABDOMEN: Normal. OTHER FINDINGS: None. IMPRESSION: No active disease.
[2018-03-15 14:44] VITALS: BP 127/62; PULSE 86; RESP 13; TEMP 98.6
[2018-03-15 15:54] VITALS: O2SAT 98
== END 2018-03-15 14:41 | disposition home or self-care (01) ==
LOC: C.ER 11:56
DX: J45.901 Unspecified asthma with (acute) exacerbation (principal); N18.9 Chronic kidney disease, unspecified; M06.9 Rheumatoid arthritis, unspecified
CPT/HCPCS: 71045; 80053; 85025; 94150; 94640; 96374; 99285; J2930

== ENCOUNTER 2018-08-03 11:09 | Inpatient (IN) | payer MEDICAID ==
[2018-08-03 11:09] VITALS: BMI 30.9
[2018-08-03] MEDS ORDERED: Albuterol-Ipratrop 3 mg / 0.5 (3 ml) UD ONE ×2 (11:50→12:18)
[2018-08-03] MEDS ORDERED: MethylPREDNISolone 40 mg Vial IVP STA (12:06)
[2018-08-03] MEDS ORDERED: Albuterol-Ipratrop 3 mg / 0.5 (3 ml) UD INH STA ×3 (12:06→12:07)
[2018-08-03 12:33] LABS: BASO % 0.6 % (0.0-2.0); EOS # 0.4 K/uL (0.0-0.7); EOS % 5.3 % (0.0-4.0); HEMOGLOBIN 14.8 g/dL (11.0-16.0); LYMPH # 2.8 K/uL (1.0-4.3); LYMPH % 34.2 % (20.0-40.0); MEAN CELL VOLUME 86.1 fL (81.0-99.0); MEAN CORPUSCULAR HEMOGLOBIN 29.2 pg (27.0-31.0); MEAN CORPUSCULAR HGB CONC 33.9 g/dL (33.0-37.0); MEAN PLATELET VOLUME 8.4 fL (7.2-11.7); MONO # 0.5 K/uL (0.0-0.8); MONO % 6.3 % (0.0-10.0); NEUT # 4.4 K/uL (1.8-7.0); NEUT % 53.6 % (50.0-75.0); NRBC % 0.1 % (0.0-2.0); RBC 5.07 Mil/uL (3.80-5.20); RED CELL DISTRIBUTION WIDTH 13.6 % (11.5-14.5); WHITE BLOOD COUNT 8.3 K/uL (4.8-10.8)
[2018-08-03 12:38] LABS: PROTHROMBIN TIME 10.8 SECONDS (9.7-12.2)
--- NOTE | 2018-08-03 12:44 | C.PDOC ---
History Of Present Illness 42 year old female with a history of asthma presents to the ED for evaluation of exacerbated asthma since yesterday. Patient states her asthma is usually triggered by the weather. Denies fever, nausea, vomiting, and any other associ ated symptoms. Time Seen by Provider: 08/03/18 12:02 Chief Complaint (Nursing): Shortness Of Breath History Per: Patient History/Exam Limitations: no limitations Onset/Duration Of Symptoms: Hrs Current Symptoms Are (Timing): Still Present Past Medical History Reviewed: Historical Data, Nursing Documentation, Vital Signs Vital Signs: Last Vital Signs Temp 98.2 F 08/03/18 11:52 Pulse 81 08/03/18 11:52 Resp 20 08/03/18 11:52 BP 111/80 08/03/18 11:52 Pulse Ox 95 08/03/18 11:52 - Medical History PMH: Anxiety, Asthma (HOSPITALIZED NOVEMBER 2015), Bronchitis, Depression (NOT ON MED. AT THIS TIME(01/02/16)), Fractures (Toe (3 years ago)), Gall Bladder Disease, Kidney Stones (LASER [place].), Pneumonia, Chronic Kidney Disease, Rheumatoid Arthritis Surgical History: Cholecystectomy - [facility] Procedures INFLUENZA VACCINATION (08/21/13) NON-INVASIVE MECHANICAL VENTILATION (12/11/14) VACCINATION NEC (08/21/13) Family History: States: Unknown Family Hx - Social History Hx Tobacco Use: No Hx Alcohol Use: No Hx Substance Use: No - Immunization History Hx Tetanus Toxoid Vaccination: No Hx Influenza Vaccination: Yes Hx Pneumococcal Vaccination: No Review Of Systems Constitutional: Negative for: Fever Respiratory: Positive for: Other (exacerbated asthma.) Gastrointestinal: Negative for: Nausea, Vomiting Physical Exam - Physical Exam Appears: Well, Non-toxic, No Acute Distress Skin: Normal Color, Warm, Dry Head: Atraumatic, Normacephalic Eye(s): bilateral: Normal Inspection Oral Mucosa: Moist Neck: Normal ROM, Supple Chest: Symmetrical, No Deformity Cardiovascular: Rhythm Regular, No Murmur Respiratory: No Rales, No Rhonchi, Wheezing (bilaterally.) Gastrointestinal/Abdominal: Normal Exam, Soft, No Tenderness Neurological/Psych: Oriented x3, Normal Speech ED Course And Treatment - Laboratory Results Result Diagrams: 08/03/18 12:21 08/03/18 12:21 ECG Rhythm: Sinus Rhythm, Nonspecific Changes Interpretation Of ECG: Non-specific ST changes. Rate From EC O2 Sat by Pulse Oximetry: 95 (RA) Pulse Ox Interpretation: Normal - Other Rad CXR X-Ray: Viewed By Me, Read By Radiologist Interpretation: FINDINGS: Examination limited by habitus. LUNGS: Hyperinflation may be seen in the setting of COPD. No focal consolidation. Please note that chest x-ray has limited sensitivity for the detection of pulmonary masses. PLEURA: No significant pleural effusion identified. No definite pneumothorax . CARDIOVASCULAR: Heart size appears within normal limits. Atherosclerotic calcification present. OSSEOUS STRUCTURES: No acute osseous abnormality identified. VISUALIZED UPPER ABDOMEN: Upper abdominal surgical clips. OTHER FINDINGS: None. IMPRESSION: Hyperinflation may be seen in the setting of COPD. Medical Decision Making Medical Decision Making: Plan: -EKG -Blood sent. -CXR -Duoneb -Solu-Medrol -Influenza A B ekg nonspecific changes trop neg. pt observed 3 hours persisent wheezing. accpeted by dr hernandez. Disposition - Disposition Disposition: HOSPITALIZED Disposition Time: 13:00 Condition: STABLE - Clinical Impression Clinical Impression: Asthma - Scribe Statement The provider has reviewed the documentation as recorded by the Scribe (Olimpia Diggs) Provider Attestation: All medical record entries made by the Scribe were at my direction and personally dictated by me. I have reviewed the chart and agree that the record accurately reflects my personal performance of the history, physical exam, medical decision making, and the department course for this patient. I have also personally directed, reviewed, and agree with the discharge instructions and disposition. Decision To Admit - Pt Status Changed To: Hospital Disposition Of: Inpatient - Admit Certification Admit to Inpatient:: After my assessment, the patient will require hospitalization for at least two midnights. This is because of the severity of symptoms shown, intensity of services needed, and/or the medical risk in this patient being treated as an outpatient. - InPatient: Physician Admission Certification: I certify that this patient requires 2 or more midnights of care for the following reason:: asthma persistnent whezing - . Bed Request Type: Telemetry Admitting Physician: Sonia Hernandez Patient Diagnosis: Asthma
[2018-08-03 12:51] LABS: ALB/GLOB RATIO 1.1 (1.0-2.1); ALT/SGPT 26 U/L (9-52); AST/SGOT 28 U/L (14-36); BLOOD UREA NITROGEN 9 mg/dL (7-17); CALCIUM 9.1 mg/dl (8.6-10.4); GFR NON-AFRICAN AMERICAN > 60
--- NOTE | 2018-08-03 13:14 | RAD ---
HISTORY: SOB COMPARISON: Chest x-ray performed 03/15/18 TECHNIQUE: Chest PA and lateral FINDINGS: Examination limited by habitus. LUNGS: Hyperinflation may be seen in the setting of COPD. No focal consolidation. Please note that chest x-ray has limited sensitivity for the detection of pulmonary masses. PLEURA: No significant pleural effusion identified. No definite pneumothorax . CARDIOVASCULAR: Heart size appears within normal limits. Atherosclerotic calcification present. OSSEOUS STRUCTURES: No acute osseous abnormality identified. VISUALIZED UPPER ABDOMEN: Upper abdominal surgical clips. OTHER FINDINGS: None. IMPRESSION: Hyperinflation may be seen in the setting of COPD.
--- NOTE | 2018-08-03 16:35 | CP.PCM.HP ---
Past Patient History - Infectious Disease Hx of Infectious Diseases: None - Past Medical History & Family History Past Medical History?: Yes - Past Social History Smoking Status: Never Smoked - PULMONARY Hx Asthma: Yes (HOSPITALIZED NOVEMBER 2015) Hx Bronchitis: Yes Hx Pneumonia: Yes - NEUROLOGICAL Hx Neurological Disorder: No - HEENT Hx HEENT Problems: No - RENAL Hx Chronic Kidney Disease: Yes Hx Kidney Stones: Yes (LASER [place].) - ENDOCRINE/METABOLIC Hx Endocrine Disorders: No - HEMATOLOGICAL/ONCOLOGICAL Hx Blood Disorders: No - INTEGUMENTARY Hx Dermatological Problems: No - MUSCULOSKELETAL/RHEUMATOLOGICAL Hx Fractures: Yes (Toe (3 years ago)) Hx Rheumatoid Arthritis: Yes - GASTROINTESTINAL Hx Gall Bladder Disease: Yes - GENITOURINARY/GYNECOLOGICAL Hx Genitourinary Disorders: No - PSYCHIATRIC Hx Anxiety: Yes Hx Depression: Yes (NOT ON MED. AT THIS TIME(01/02/16)) Hx Substance Use: No - SURGICAL HISTORY Hx Cholecystectomy: Yes - ANESTHESIA Hx Anesthesia: Yes Hx Anesthesia Reactions: No Hx Malignant Hyperthermia: No Meds Allergies/Adverse Reactions: Allergies Allergy/AdvReac Type Severity Reaction Status Date / Time No Known Allergies Allergy Verified 03/15/18 12:00 Physical Exam - Constitutional Appears: Well - Head Exam Head Exam: ATRAUMATIC, NORMAL INSPECTION, NORMOCEPHALIC - Eye Exam Eye Exam: EOMI, Normal appearance, PERRL Pupil Exam: NORMAL ACCOMODATION, PERRL - ENT Exam ENT Exam: Mucous Membranes Moist, Normal Exam - Neck Exam Neck exam: Positive for: Normal Inspection - Respiratory Exam Respiratory Exam: Decreased Breath Sounds - Cardiovascular Exam Cardiovascular Exam: REGULAR RHYTHM, +S1, +S2 - GI/Abdominal Exam GI & Abdominal Exam: Diminished Bowel Sounds, Soft - Rectal Exam Rectal Exam: Deferred Results - Vital Signs Recent Vital Signs: Last Vital Signs Temp 98.5 F 08/03/18 15:15 Pulse 85 08/03/18 15:15 Resp 20 08/03/18 15:15 BP 119/79 08/03/18 15:15 Pulse Ox 98 08/03/18 15:15 - Labs Result Diagrams: 08/03/18 12:21 08/03/18 12:21 Labs: Laboratory Results - last 24 hr 08/03/18 08/03/18 08/03/18 12:21 12:21 12:21 WBC 8.3 RBC 5.07 Hgb 14.8 Hct 43.6 MCV 86.1 MCH 29.2 MCHC 33.9 RDW 13.6 Plt Count 306 MPV 8.4 Neut % (Auto) 53.6 Lymph % (Auto) 34.2 Wilkin % (Auto) 6.3 Eos % (Auto) 5.3 H Baso % (Auto) 0.6 Neut # (Auto) 4.4 Lymph # (Auto) 2.8 Wilkin # (Auto) 0.5 Eos # (Auto) 0.4 Baso # (Auto) 0.0 PT 10.8 INR 1.0 APTT 34 Sodium 140 Potassium 4.1 Chloride 104 Carbon Dioxide 25 Anion Gap 16 BUN 9 Creatinine 0.7 Est GFR ( Amer) > 60 Est GFR (Non-Af Amer) > 60 Random Glucose 117 H Calcium 9.1 Total Bilirubin 0.6 AST 28 ALT 26 Alkaline Phosphatase 158 H Troponin I Total Protein 7.6 Albumin 4.0 Globulin 3.5 Albumin/Globulin Ratio 1.1 Influenza Typ A,B (EIA) 08/03/18 08/03/18 14:06 15:59 WBC RBC Hgb Hct MCV MCH MCHC RDW Plt Count MPV Neut % (Auto) Lymph % (Auto) Wilkin % (Auto) Eos % (Auto) Baso % (Auto) Neut # (Auto) Lymph # (Auto) Wilkin # (Auto) Eos # (Auto) Baso # (Auto) PT INR APTT Sodium Potassium Chloride Carbon Dioxide Anion Gap BUN Creatinine Est GFR ( Amer) Est GFR (Non-Af Amer) Random Glucose Calcium Total Bilirubin AST ALT Alkaline Phosphatase Troponin I < 0.0120 Total Protein Albumin Globulin Albumin/Globulin Ratio Influenza Typ A,B (EIA) Negative for flu a/b
[2018-08-03] MEDS: Pantoprazole 40 mg EC Tab PO SCH (19:13)
[2018-08-03] MEDS: Azithromycin 500 MG in Sodium Chloride 0.9% 250 ML IVPB SCH (19:14)
[2018-08-03] MEDS: Budesonide 0.5 mg/2 ml Inhal Susp UD INH SCH (19:39)
[2018-08-03] MEDS: Albuterol-Ipratrop 3 mg / 0.5 (3 ml) UD INH SCH (19:41)
[2018-08-03] MEDS ORDERED: DiphenhydrAMINE 12.5 mg/5 ml LIQ UD (5 ml) PO ONE (21:42)
[2018-08-03] MEDS: MethylPREDNISolone 40 mg Vial IVP SCH (21:50)
[2018-08-04] MEDS: Albuterol-Ipratrop 3 mg / 0.5 (3 ml) UD INH SCH ×4 (00:45→20:33)
[2018-08-04 03:28] LABS: HCG,QUALITATIVE URINE NEGATIVE (NEGATIVE); SQUAMOUS EPITHIAL 1 /hpf (0-5); URINE BILIRUBIN NEGATIVE (NEGATIVE); URINE BLOOD NEGATIVE (NEGATIVE); URINE CLARITY Clear (Clear); URINE COLOR Straw (YELLOW); URINE GLUCOSE (UA) 3+ mg/dL (Normal); URINE LEUKOCYTE ESTERASE NEG Leu/uL (Negative); URINE PROTEIN NEGATIVE (NEGATIVE); URINE UROBILINOGEN NORMAL mg/dL (0.2-1.0)
[2018-08-04] MEDS: MethylPREDNISolone 40 mg Vial IVP SCH ×3 (05:55→21:34)
--- NOTE | 2018-08-04 07:27 | CP.PCM.PN ---
Subjective - Date & Time of Evaluation Date of Evaluation: 08/04/18 Time of Evaluation: 07:27 - Subjective Subjective: PGY2- Progress note for Dr. Charisma Miller Patient was seen and examined at bedside in no acute distress. Patient reports feeling significantly better and requesting to go home. She states she is no longer wheezing or feeling short of breath. She admits to a nonproductive cough. The patient denies chest pain, palpitations, dyspnea, cough, nausea, vomiting, fevers, headaches, dizziness, abdominal pain, dysuria, constipation, diarrhea. Objective - Vital Signs/Intake and Output Vital Signs (last 24 hours): Temp Pulse Resp BP Pulse Ox 98.1 F 93 H 20 132/74 95 08/03/18 23:50 08/04/18 03:14 08/03/18 23:50 08/03/18 23:50 08/03/18 23:50 Intake and Output: 08/04/18 08/04/18 06:59 18:59 Intake Total 670 Balance 670 - Medications Medications: Current Medications Albuterol/Ipratropium (Duoneb 3 Mg/0.5 Mg (3 Ml) Ud) 3 ml INH RQ6 KAYLYNN Last Admin: 08/04/18 00:45 Dose: 3 ml Budesonide (Pulmicort Respules) 0.5 mg INH RQ12 KAYLYNN Last Admin: 08/03/18 19:39 Dose: Not Given Enoxaparin Sodium (Lovenox) 40 mg SC DAILY KAYLYNN Ceftriaxone Sodium 1 gm/ (Sodium Chloride) 100 mls @ 100 mls/hr IVPB Q24H KAYLYNN; Protocol Last Admin: 08/03/18 19:14 Dose: 100 mls/hr Azithromycin 500 mg/ Sodium (Chloride) 250 mls @ 250 mls/hr IVPB Q24H KAYLYNN; Protocol Last Admin: 08/03/18 19:14 Dose: 250 mls/hr Influenza Virus Vaccine (Fluzone Quad [id number]) 60 mcg IM .ONCE ONE Stop: 08/05/18 10:01 Methylprednisolone (Solu-Medrol) 40 mg IVP Q8H KAYLYNN Last Admin: 08/04/18 05:55 Dose: 40 mg Montelukast Sodium (Singulair) 10 mg PO HS KAYLYNN Last Admin: 08/03/18 21:49 Dose: 10 mg Pantoprazole Sodium (Protonix Ec Tab) 40 mg PO DAILY KAYLYNN Last Admin: 08/03/18 19:13 Dose: 40 mg - Labs Labs: 08/03/18 12:21 08/03/18 12:21 PT 10.8 SECONDS (9.7-12.2) 08/03/18 12:21 INR 1.0 08/03/18 12:21 APTT 34 SECONDS (21-34) 08/03/18 12:21 - Constitutional Appears: No Acute Distress - Head Exam Head Exam: ATRAUMATIC, NORMAL INSPECTION - Eye Exam Eye Exam: EOMI, Normal appearance - ENT Exam ENT Exam: Mucous Membranes Moist - Respiratory Exam Respiratory Exam: NORMAL BREATHING PATTERN. absent: Rales, Rhonchi, Wheezes, Respiratory Distress - Cardiovascular Exam Cardiovascular Exam: REGULAR RHYTHM, +S1, +S2 - GI/Abdominal Exam GI & Abdominal Exam: Soft, Normal Bowel Sounds. absent: Distended, Firm, Tenderness - Extremities Exam Extremities Exam: Normal Inspection. absent: Pedal Edema, Tenderness - Neurological Exam Neurological Exam: Alert, Awake, Oriented x3 - Psychiatric Exam Psychiatric exam: Normal Affect, Normal Mood - Skin Skin Exam: Dry, Normal Color, Warm Assessment and Plan - Assessment and Plan (Free Text) Plan: Asthma Exacerbation - CXR: hyperinflation - Duonebs Q6h - Pulmicort Q12h - Solumedrol 40mg IV Q8h - Rocephin 1gm IV Q24h (active since 08/03/18) - Azithromycin 500mg IV Q24h (active since 08/03/18) - Singulair 10mg PO HS Tachycardia - EKG at admission: sinus tachycardia @91bpm - Patient had episode of v-tach on morning of 08/04--> EKG, ECHO, and cardiology consult placed. - EKG (repeat): sinus tachy @104bpm - ECHO: f/u - Business Continuity Planner consulted, Dr. Donald; help appreciated Prophylaxis - DVT: Lovenox 40mg SC daily, SCDs - GI: Protonix 40mg PO daily - Heart healthy diet All management/orders per Dr. Charisma Miller.
[2018-08-04] MEDS: Budesonide 0.5 mg/2 ml Inhal Susp UD INH SCH ×2 (09:00→20:34)
[2018-08-04] MEDS: Pantoprazole 40 mg EC Tab PO SCH (09:44)
[2018-08-04] MEDS: Enoxaparin 40 mg Syringe SC SCH (09:44)
--- NOTE | 2018-08-04 16:01 | CP.PCM.PN ---
Subjective - Date & Time of Evaluation Date of Evaluation: 08/04/18 Time of Evaluation: 09:00 - Subjective Subjective: clinically same Objective - Vital Signs/Intake and Output Vital Signs (last 24 hours): Temp Pulse Resp BP Pulse Ox 98.0 F 102 H 18 145/78 95 08/04/18 07:00 08/04/18 12:00 08/04/18 10:10 08/04/18 10:10 08/04/18 10:10 Intake and Output: 08/04/18 08/04/18 06:59 18:59 Intake Total 670 Balance 670 - Medications Medications: Current Medications Albuterol/Ipratropium (Duoneb 3 Mg/0.5 Mg (3 Ml) Ud) 3 ml INH RQ6 KAYLYNN Last Admin: 08/04/18 14:10 Dose: 3 ml Budesonide (Pulmicort Respules) 0.5 mg INH RQ12 KAYLYNN Last Admin: 08/04/18 09:00 Dose: 0.5 mg Enoxaparin Sodium (Lovenox) 40 mg SC DAILY KAYLYNN Last Admin: 08/04/18 09:44 Dose: 40 mg Ceftriaxone Sodium 1 gm/ (Sodium Chloride) 100 mls @ 100 mls/hr IVPB Q24H KAYLYNN; Protocol Last Admin: 08/03/18 19:14 Dose: 100 mls/hr Azithromycin 500 mg/ Sodium (Chloride) 250 mls @ 250 mls/hr IVPB Q24H KAYLYNN; Protocol Last Admin: 08/03/18 19:14 Dose: 250 mls/hr Influenza Virus Vaccine (Fluzone Quad [id number]) 60 mcg IM .ONCE ONE Stop: 08/05/18 10:01 Methylprednisolone (Solu-Medrol) 40 mg IVP Q8H KAYLYNN Last Admin: 08/04/18 13:53 Dose: 40 mg Montelukast Sodium (Singulair) 10 mg PO HS KAYLYNN Last Admin: 08/03/18 21:49 Dose: 10 mg Pantoprazole Sodium (Protonix Ec Tab) 40 mg PO DAILY KAYLYNN Last Admin: 08/04/18 09:44 Dose: 40 mg - Labs Labs: 08/03/18 12:21 08/03/18 12:21 PT 10.8 SECONDS (9.7-12.2) 08/03/18 12:21 INR 1.0 08/03/18 12:21 APTT 34 SECONDS (21-34) 08/03/18 12:21 - Constitutional Appears: Well - Head Exam Head Exam: ATRAUMATIC, NORMAL INSPECTION, NORMOCEPHALIC - Eye Exam Eye Exam: EOMI, Normal appearance, PERRL Pupil Exam: NORMAL ACCOMODATION, PERRL - ENT Exam ENT Exam: Mucous Membranes Moist, Normal Exam - Neck Exam Neck Exam: Full ROM, Normal Inspection. absent: Lymphadenopathy - Respiratory Exam Respiratory Exam: Decreased Breath Sounds - Cardiovascular Exam Cardiovascular Exam: REGULAR RHYTHM, +S1, +S2 - GI/Abdominal Exam GI & Abdominal Exam: Soft, Diminished Bowel Sounds - Rectal Exam Rectal Exam: Deferred
--- NOTE | 2018-08-04 17:52 | CP.PCM.CON ---
History of Present Illness - History of Present Illness History of Present Illness: Patient is a 42 y/o female with PMHx of asthma, who presented to the ED on 08/03/18 for evaluation of asthma exacerbation. She states she has been having dry cough and wheezing for the past 2 weeks that seemed to have been triggered by the cold weather. Patient says her PEF at home is around 350 at baseline; today, it is around 300. She states she stopped seeing her transportation dispatcher recently because the doctor went out of office. Currently, she states the shortness of breath and dry cough have improved with nebulizer treatment and O2; denies fever, chills, chest pain, wheezing, and leg swelling. 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 -CXR (08/03): hyperinflation may be seen in setting of COPD. Review of Systems - Review of Systems All systems: reviewed and no additional remarkable complaints except (shortness of breath and wheezing) Past Patient History - Infectious Disease Hx of Infectious Diseases: None - Past Medical History & Family History Past Medical History?: Yes - Past Social History Smoking Status: Never Smoked - CARDIAC Hx Cardiac Disorders: No - PULMONARY Hx Respiratory Disorders: Yes Hx Asthma: Yes (HOSPITALIZED NOVEMBER 2015) Hx Bronchitis: Yes Hx Pneumonia: Yes - NEUROLOGICAL Hx Neurological Disorder: No - HEENT Hx HEENT Problems: No - RENAL Hx Chronic Kidney Disease: Yes Hx Kidney Stones: Yes ([place]ER [place].) - ENDOCRINE/METABOLIC Hx Endocrine Disorders: No - HEMATOLOGICAL/ONCOLOGICAL Hx Blood Disorders: No - INTEGUMENTARY Hx Dermatological Problems: No - MUSCULOSKELETAL/RHEUMATOLOGICAL Hx Falls: No Hx Fractures: Yes (Toe (3 years ago)) Hx Rheumatoid Arthritis: Yes - GASTROINTESTINAL Hx Gastrointestinal Disorders: Yes Hx Gall Bladder Disease: Yes - GENITOURINARY/GYNECOLOGICAL Hx Genitourinary Disorders: No - PSYCHIATRIC Hx Substance Use: No - SURGICAL HISTORY Hx Surgeries: Yes Hx Cholecystectomy: Yes Other/Comment: right arm sx for vascular necrosis - ANESTHESIA Hx Anesthesia: Yes Hx Anesthesia Reactions: No Hx Malignant Hyperthermia: No Has any member of the family had a problem w/ anesthesia?: No Meds Allergies/Adverse Reactions: Allergies Allergy/AdvReac Type Severity Reaction Status Date / Time No Known Allergies Allergy Verified 03/15/18 12:00 - Medications Medications: Current Medications Albuterol/Ipratropium (Duoneb 3 Mg/0.5 Mg (3 Ml) Ud) 3 ml INH RQ6 [facility] Last Admin: 08/04/18 14:10 Dose: 3 ml Budesonide (Pulmicort Respules) 0.5 mg INH RQ12 [facility] Last Admin: 08/04/18 09:00 Dose: 0.5 mg Enoxaparin Sodium (Lovenox) 40 mg SC DAILY [facility] Last Admin: 08/04/18 09:44 Dose: 40 mg Ceftriaxone Sodium 1 gm/ (Sodium Chloride) 100 mls @ 100 mls/hr IVPB Q24H [facility]; Protocol Last Admin: 08/04/18 17:19 Dose: 100 mls/hr Azithromycin 500 mg/ Sodium (Chloride) 250 mls @ 250 mls/hr IVPB Q24H [facility]; Protocol Last Admin: 08/03/18 19:14 Dose: 250 mls/hr Influenza Virus Vaccine (Fluzone Quad [id number]) 60 mcg IM .ONCE ONE Stop: 08/05/18 10:01 Methylprednisolone (Solu-Medrol) 40 mg IVP Q8H [facility] Last Admin: 08/04/18 13:53 Dose: 40 mg Montelukast Sodium (Singulair) 10 mg PO HS [facility] Last Admin: 08/03/18 21:49 Dose: 10 mg Pantoprazole Sodium (Protonix Ec Tab) 40 mg PO DAILY [facility] Last Admin: 08/04/18 09:44 Dose: 40 mg Physical Exam - Head Exam Head Exam: ATRAUMATIC, NORMOCEPHALIC - ENT Exam ENT Exam: Mucous Membranes Moist - Neck Exam Neck exam: Positive for: Normal Inspection - Respiratory Exam Respiratory Exam: Rhonchi - Cardiovascular Exam Cardiovascular Exam: REGULAR RHYTHM - GI/Abdominal Exam GI & Abdominal Exam: Normal Bowel Sounds, Soft - Extremities Exam Extremities exam: Positive for: normal inspection - Neurological Exam Neurological exam: Alert, Oriented x3 Results - Vital Signs Recent Vital Signs: Last Vital Signs Temp 98.0 F 08/04/18 15:00 Pulse 112 H 08/04/18 15:00 Resp 20 08/04/18 15:00 BP 124/68 08/04/18 15:00 Pulse Ox 96 08/04/18 15:00 - Labs Result Diagrams: 08/03/18 12:21 08/03/18 12:21 Labs: Laboratory Results - last 24 hr 08/04/18 03:22 Urine Color Straw Urine Clarity Clear Urine pH 6.0 Ur Specific Hermann 1.028 Urine Protein Negative Urine Glucose (UA) 3+ H Urine Ketones Trace Urine Blood Negative Urine Nitrate Negative Urine Bilirubin Negative Urine Urobilinogen Normal Ur Leukocyte Esterase Neg Urine WBC (Auto) < 1 Urine RBC (Auto) 2 Ur Squamous Epith Cells 1 Urine HCG, Qual Negative Assessment & Plan (1) Asthma exacerbation Assessment and Plan: IV steroids Peak flow q. shift Nebulizer treatment Pulmonary function test Continue Singulair Status: Acute
[2018-08-04] MEDS: Azithromycin 500 MG in Sodium Chloride 0.9% 250 ML IVPB SCH (19:04)
--- NOTE | 2018-08-04 21:46 | CARD ---
APPROVED REPORT Date of service: 08/03/2018 EKG Measurement Heart [id number] <Conclusion> Normal sinus rhythm Nonspecific T wave abnormality Abnormal ECG
[2018-08-05] MEDS: Albuterol-Ipratrop 3 mg / 0.5 (3 ml) UD INH SCH ×4 (01:53→19:25)
--- NOTE | 2018-08-05 03:23 | CARD ---
APPROVED REPORT Date of service: 08/04/2018 EXAM: Two-dimensional and M-mode echocardiogram with Doppler and color Doppler. 2D DIMENSIONS IVSd0.8 (0.7-1.1cm)Aortic Root (2D)2.5 (2.0-3.7cm) LVDd4.7 (3.9-5.9cm)PWd0.9 (0.7-1.1cm) LA Liacwz21 (18-58mL)LVDs3.1 (2.5-4.0cm) FS (%) 35.0 %LVEF (%)64.3 (>50%) LVEF (Johnson's)60 %IVC0.00 cm M-Mode DIMENSIONS Left Atrium (MM)3.51 (2.5-4.0cm)IVSd0.68 (0.7-1.1cm) Aortic Root2.26 (2.2-3.7cm)LVDd5.27 (4.0-5.6cm) Aortic Cusp Exc.1.28 (1.5-2.0cm)PWd0.72 (0.7-1.1cm) FS (%) 34 %LVDs3.48 (2.0-3.8cm) LVEF (%)62 (>50%) Mitral Valve MV E Jhifgiuo60.4cm/sMV A Kkedmlhp614.5cm/sE/A ratio0.8 TDI Lateral E' Peak V12.81cm/sMedial E' Peak V8.93cm/sE/Lateral E'7.4 E/Medial E'10.6 Tricuspid Valve TR Peak Ivrllhby761av/sTR Peak Gr.[id number] LEFT VENTRICLE The left ventricle is normal size. There is normal left ventricular wall thickness. Left ventricle systolic function is normal. The Ejection Fraction is 60-65%. There is normal LV segmental wall motion. Tissue Doppler imaging reveals abnormal left ventricular diastolic dysfunction. RIGHT VENTRICLE The right ventricle is normal size. There is normal right ventricular wall thickness. The right ventricular systolic function is normal. ATRIA The left atrium size is normal. The right atrium size is normal. The interatrial septum is intact with no evidence for an atrial septal defect. AORTIC VALVE The aortic valve is normal in structure. No aortic regurgitation is present. There is no aortic valvular stenosis. There is no aortic valvular vegetation. MITRAL VALVE The mitral valve is normal in structure. There is no evidence of mitral valve prolapse. There is no mitral valve stenosis. There is no mitral valve regurgitation noted. TRICUSPID VALVE The tricuspid valve is normal in structure. There is mild tricuspid regurgitation. Right ventricular systolic pressure is estimated at 30-40 mmHg. There is mild pulmonary hypertension. PULMONIC VALVE The pulmonic valve is not well visualized. There is no pulmonic valvular regurgitation. GREAT VESSELS The aortic root is normal in size. PERICARDIAL EFFUSION There is no significant pericardial effusion. <Conclusion> Left ventricle systolic function is normal. The Ejection Fraction is 60-65%. Diastolic dysfunction. No aortic regurgitation is present. There is no mitral valve regurgitation noted. There is mild tricuspid regurgitation. There is mild pulmonary hypertension. There is no pulmonic valvular regurgitation.
[2018-08-05] MEDS: MethylPREDNISolone 40 mg Vial IVP SCH ×3 (06:40→21:58)
[2018-08-05] MEDS: Budesonide 0.5 mg/2 ml Inhal Susp UD INH SCH ×2 (08:19→19:25)
[2018-08-05] MEDS: Enoxaparin 40 mg Syringe SC SCH (09:30)
[2018-08-05] MEDS: Pantoprazole 40 mg EC Tab PO SCH (09:31)
[2018-08-05] MEDS ORDERED: Influenza Vaccine 60 MCG/0.5 ML SYR (3 yr & up) IM ONE (10:00)
--- NOTE | 2018-08-05 14:35 | CP.PCM.PN ---
Subjective - Date & Time of Evaluation Date of Evaluation: 08/05/18 Time of Evaluation: 14:30 - Subjective Subjective: Progress note. Attending: Dr. Jose Alfredo Miller Pt seen and examined at bedside. No acute distress. No events overnight. No fevers, chills, vomiting, diarrhea. Getting a pulmonary and cardiology evaluation. Objective - Vital Signs/Intake and Output Vital Signs (last 24 hours): Temp Pulse Resp BP Pulse Ox 97.8 F 65 20 132/72 96 08/05/18 07:36 08/05/18 08:05 08/05/18 07:36 08/05/18 07:36 08/05/18 07:36 - Medications Medications: Current Medications Albuterol/Ipratropium (Duoneb 3 Mg/0.5 Mg (3 Ml) Ud) 3 ml INH RQ6 [facility] Last Admin: 08/05/18 14:02 Dose: 3 ml Budesonide (Pulmicort Respules) 0.5 mg INH RQ12 [facility] Last Admin: 08/05/18 08:19 Dose: 0.5 mg Diphenhydramine HCl (Benadryl) 25 mg PO Q8 PRN PRN Reason: Itching / Pruritus Last Admin: 08/04/18 22:33 Dose: 25 mg Enoxaparin Sodium (Lovenox) 40 mg SC DAILY [facility] Last Admin: 08/05/18 09:30 Dose: 40 mg Ceftriaxone Sodium 1 gm/ (Sodium Chloride) 100 mls @ 100 mls/hr IVPB Q24H [facility]; Protocol Last Admin: 08/04/18 17:19 Dose: 100 mls/hr Azithromycin 500 mg/ Sodium (Chloride) 250 mls @ 250 mls/hr IVPB Q24H [facility]; Protocol Last Admin: 08/04/18 19:04 Dose: 250 mls/hr Methylprednisolone (Solu-Medrol) 40 mg IVP Q8H [facility] Last Admin: 08/05/18 14:22 Dose: 40 mg Montelukast Sodium (Singulair) 10 mg PO HS [facility] Last Admin: 08/04/18 21:33 Dose: 10 mg Pantoprazole Sodium (Protonix Ec Tab) 40 mg PO DAILY [facility] Last Admin: 08/05/18 09:31 Dose: 40 mg - Labs Labs: 08/03/18 12:21 08/03/18 12:21 PT 10.8 SECONDS (9.7-12.2) 08/03/18 12:21 INR 1.0 08/03/18 12:21 APTT 34 SECONDS (21-34) 08/03/18 12:21 - Constitutional Appears: Non-toxic, No Acute Distress - Head Exam Head Exam: ATRAUMATIC, NORMAL INSPECTION, NORMOCEPHALIC - Eye Exam Eye Exam: EOMI - ENT Exam ENT Exam: Mucous Membranes Moist - Neck Exam Neck Exam: Full ROM, Normal Inspection - Respiratory Exam Respiratory Exam: absent: Accessory Muscle Use, Chest Wall Tenderness, Respiratory Distress - Cardiovascular Exam Cardiovascular Exam: +S1, +S2 - GI/Abdominal Exam GI & Abdominal Exam: Soft, Normal Bowel Sounds. absent: Tenderness - Extremities Exam Extremities Exam: Full ROM, Normal Inspection - Back Exam Back Exam: NORMAL INSPECTION - Neurological Exam Neurological Exam: Alert, Awake, Oriented x3 - Psychiatric Exam Psychiatric exam: Normal Affect, Normal Mood - Skin Skin Exam: Dry, Intact, Normal Color, Warm Assessment and Plan - Assessment and Plan (Free Text) Assessment: This is a 42 yo female with 1. Asthma Exacerbation - CXR: hyperinflation - Duonebs Q6h - Pulmicort Q12h - Solumedrol 40mg IV Q8h - Rocephin 1gm IV Q24h (active since 08/03/18) - Azithromycin 500mg IV Q24h (active since 08/03/18) - Singulair 10mg PO HS 2. Tachycardia - EKG at admission: sinus tachycardia @ 91bpm - Patient had episode of v-tach on morning of 08/04--> EKG, ECHO, and cardiology consult placed. - EKG (repeat): sinus tachy @104bpm - ECHO: shows normal LV function; does show some diastolic dysfunction. - Naval Architect consulted, Dr. Donald; help appreciated 3. GI/DVT Prophylaxis - DVT: Lovenox 40mg SC daily, SCDs - GI: Protonix 40mg PO daily - Heart healthy diet All management/orders per Dr. Charisma Miller.
--- NOTE | 2018-08-05 18:45 | CP.PCM.PN ---
Subjective - Date & Time of Evaluation Date of Evaluation: 08/05/18 Time of Evaluation: 09:30 - Subjective Subjective: clinically same Objective - Vital Signs/Intake and Output Vital Signs (last 24 hours): Temp Pulse Resp BP Pulse Ox 97.2 F L 89 20 136/73 94 L 08/05/18 15:10 08/05/18 17:55 08/05/18 15:10 08/05/18 15:10 08/05/18 15:10 - Medications Medications: Current Medications Albuterol/Ipratropium (Duoneb 3 Mg/0.5 Mg (3 Ml) Ud) 3 ml INH RQ6 [facility] Last Admin: 08/05/18 14:02 Dose: 3 ml Budesonide (Pulmicort Respules) 0.5 mg INH RQ12 [facility] Last Admin: 08/05/18 08:19 Dose: 0.5 mg Diphenhydramine HCl (Benadryl) 25 mg PO Q8 PRN PRN Reason: Itching / Pruritus Last Admin: 08/04/18 22:33 Dose: 25 mg Enoxaparin Sodium (Lovenox) 40 mg SC DAILY [facility] Last Admin: 08/05/18 09:30 Dose: 40 mg Ceftriaxone Sodium 1 gm/ (Sodium Chloride) 100 mls @ 100 mls/hr IVPB Q24H [facility]; Protocol Last Admin: 08/05/18 17:34 Dose: 100 mls/hr Azithromycin 500 mg/ Sodium (Chloride) 250 mls @ 250 mls/hr IVPB Q24H [facility]; Protocol Last Admin: 08/04/18 19:04 Dose: 250 mls/hr Methylprednisolone (Solu-Medrol) 40 mg IVP Q12H [facility] Montelukast Sodium (Singulair) 10 mg PO HS [facility] Last Admin: 08/04/18 21:33 Dose: 10 mg Pantoprazole Sodium (Protonix Ec Tab) 40 mg PO DAILY [facility] Last Admin: 08/05/18 09:31 Dose: 40 mg - Labs Labs: 08/03/18 12:21 08/03/18 12:21 PT 10.8 SECONDS (9.7-12.2) 08/03/18 12:21 INR 1.0 08/03/18 12:21 APTT 34 SECONDS (21-34) 08/03/18 12:21 - Constitutional Appears: Well - Head Exam Head Exam: ATRAUMATIC, NORMAL INSPECTION, NORMOCEPHALIC - Eye Exam Eye Exam: EOMI, Normal appearance, PERRL Pupil Exam: NORMAL ACCOMODATION, PERRL - ENT Exam ENT Exam: Mucous Membranes Moist, Normal Exam - Neck Exam Neck Exam: Full ROM, Normal Inspection. absent: Lymphadenopathy - Respiratory Exam Respiratory Exam: Decreased Breath Sounds - Cardiovascular Exam Cardiovascular Exam: REGULAR RHYTHM, +S1, +S2 - GI/Abdominal Exam GI & Abdominal Exam: Soft, Diminished Bowel Sounds - Rectal Exam Rectal Exam: Deferred
--- NOTE | 2018-08-05 23:50 | CARD ---
APPROVED REPORT Date of service: 08/04/2018 EKG Measurement Heart [id number] <Conclusion> Sinus tachycardia Otherwise normal ECG
[2018-08-06] MEDS: Albuterol-Ipratrop 3 mg / 0.5 (3 ml) UD INH SCH ×4 (01:10→20:42)
[2018-08-06] MEDS: Budesonide 0.5 mg/2 ml Inhal Susp UD INH SCH ×2 (08:15→20:42)
--- NOTE | 2018-08-06 09:25 | CP.PCM.PN ---
Subjective - Date & Time of Evaluation Date of Evaluation: 08/06/18 - Subjective Subjective: Patient seen and examined at bedside, resting comfortably. Afebrile and in no acute distress but had episodes off shortness of breath wellfield technician responded to nebulizer treatment Patient still complaining of cough and shortness of breath Objective - Vital Signs/Intake and Output Vital Signs (last 24 hours): Temp Pulse Resp BP Pulse Ox 98.0 F 60 18 145/75 96 08/06/18 08:05 08/06/18 08:15 08/06/18 08:05 08/06/18 08:05 08/06/18 08:05 - Medications Medications: Current Medications Albuterol/Ipratropium (Duoneb 3 Mg/0.5 Mg (3 Ml) Ud) 3 ml INH RQ6 [facility] Last Admin: 08/06/18 08:15 Dose: 3 ml Budesonide (Pulmicort Respules) 0.5 mg INH RQ12 [facility] Last Admin: 08/06/18 08:15 Dose: 0.5 mg Diphenhydramine HCl (Benadryl) 25 mg PO Q8 PRN PRN Reason: Itching / Pruritus Last Admin: 08/05/18 21:59 Dose: 25 mg Enoxaparin Sodium (Lovenox) 40 mg SC DAILY [facility] Last Admin: 08/05/18 09:30 Dose: 40 mg Ceftriaxone Sodium 1 gm/ (Sodium Chloride) 100 mls @ 100 mls/hr IVPB Q24H [facility]; Protocol Last Admin: 08/05/18 17:34 Dose: 100 mls/hr Azithromycin 500 mg/ Sodium (Chloride) 250 mls @ 250 mls/hr IVPB Q24H [facility]; Protocol Last Admin: 08/04/18 19:04 Dose: 250 mls/hr Methylprednisolone (Solu-Medrol) 40 mg IVP Q12H [facility] Last Admin: 08/05/18 21:58 Dose: 40 mg Montelukast Sodium (Singulair) 10 mg PO HS [facility] Last Admin: 08/05/18 21:58 Dose: 10 mg Pantoprazole Sodium (Protonix Ec Tab) 40 mg PO DAILY [facility] Last Admin: 08/05/18 09:31 Dose: 40 mg - Labs Labs: 08/03/18 12:21 08/03/18 12:21 PT 10.8 SECONDS (9.7-12.2) 08/03/18 12:21 INR 1.0 08/03/18 12:21 APTT 34 SECONDS (21-34) 08/03/18 12:21 - Head Exam Head Exam: ATRAUMATIC, NORMOCEPHALIC - ENT Exam ENT Exam: Mucous Membranes Moist - Neck Exam Neck Exam: Normal Inspection - Respiratory Exam Respiratory Exam: Clear to Ausculation Bilateral - Cardiovascular Exam Cardiovascular Exam: REGULAR RHYTHM - GI/Abdominal Exam GI & Abdominal Exam: Soft, Normal Bowel Sounds Assessment and Plan (1) Asthma exacerbation Assessment & Plan: switch to p.o. prednisone Singulair Bronchodilators Antibiotics breoellipta Status: Acute
[2018-08-06] MEDS: Enoxaparin 40 mg Syringe SC SCH (10:17)
[2018-08-06] MEDS: MethylPREDNISolone 40 mg Vial IVP SCH ×2 (10:18→21:56)
[2018-08-06] MEDS: Pantoprazole 40 mg EC Tab PO SCH (10:18)
[2018-08-06] MEDS: Azithromycin 500 MG in Sodium Chloride 0.9% 250 ML IVPB SCH ×2 (10:23→19:30)
[2018-08-06 16:00] VITALS: RESP 20
--- NOTE | 2018-08-06 19:40 | CP.PCM.PN ---
Subjective - Date & Time of Evaluation Date of Evaluation: 08/06/18 Time of Evaluation: 08:45 - Subjective Subjective: clinically same Objective - Vital Signs/Intake and Output Vital Signs (last 24 hours): Temp Pulse Resp BP Pulse Ox 98.0 F 77 20 128/76 96 08/06/18 15:00 08/06/18 16:00 08/06/18 15:00 08/06/18 15:00 08/06/18 15:00 - Medications Medications: Current Medications Albuterol/Ipratropium (Duoneb 3 Mg/0.5 Mg (3 Ml) Ud) 3 ml INH RQ6 [facility] Last Admin: 08/06/18 13:50 Dose: 3 ml Budesonide (Pulmicort Respules) 0.5 mg INH RQ12 [facility] Last Admin: 08/06/18 08:15 Dose: 0.5 mg Diphenhydramine HCl (Benadryl) 25 mg PO Q8 PRN PRN Reason: Itching / Pruritus Last Admin: 08/05/18 21:59 Dose: 25 mg Enoxaparin Sodium (Lovenox) 40 mg SC DAILY [facility] Last Admin: 08/06/18 10:17 Dose: 40 mg Ceftriaxone Sodium 1 gm/ (Sodium Chloride) 100 mls @ 100 mls/hr IVPB Q24H [facility]; Protocol Last Admin: 08/06/18 17:52 Dose: 100 mls/hr Azithromycin 500 mg/ Sodium (Chloride) 250 mls @ 250 mls/hr IVPB Q24H [facility]; Protocol Last Admin: 08/06/18 10:23 Dose: 250 mls/hr Methylprednisolone (Solu-Medrol) 40 mg IVP Q12H [facility] Last Admin: 08/06/18 10:18 Dose: 40 mg Montelukast Sodium (Singulair) 10 mg PO HS [facility] Last Admin: 08/05/18 21:58 Dose: 10 mg Pantoprazole Sodium (Protonix Ec Tab) 40 mg PO DAILY [facility] Last Admin: 08/06/18 10:18 Dose: 40 mg - Labs Labs: 08/03/18 12:21 08/03/18 12:21 PT 10.8 SECONDS (9.7-12.2) 08/03/18 12:21 INR 1.0 08/03/18 12:21 APTT 34 SECONDS (21-34) 08/03/18 12:21 - Constitutional Appears: Well - Head Exam Head Exam: ATRAUMATIC, NORMAL INSPECTION, NORMOCEPHALIC - Eye Exam Eye Exam: EOMI, Normal appearance, PERRL Pupil Exam: NORMAL ACCOMODATION, PERRL - ENT Exam ENT Exam: Mucous Membranes Moist, Normal Exam - Neck Exam Neck Exam: Full ROM, Normal Inspection. absent: Lymphadenopathy - Respiratory Exam Respiratory Exam: Decreased Breath Sounds - Cardiovascular Exam Cardiovascular Exam: REGULAR RHYTHM, +S1, +S2 - GI/Abdominal Exam GI & Abdominal Exam: Soft, Diminished Bowel Sounds - Rectal Exam Rectal Exam: Deferred
[2018-08-07] MEDS: Albuterol-Ipratrop 3 mg / 0.5 (3 ml) UD INH SCH ×4 (02:10→19:55)
[2018-08-07] MEDS: Budesonide 0.5 mg/2 ml Inhal Susp UD INH SCH ×2 (08:19→19:55)
[2018-08-07] MEDS: MethylPREDNISolone 40 mg Vial IVP SCH ×2 (09:48→22:05)
[2018-08-07] MEDS: Enoxaparin 40 mg Syringe SC SCH (09:48)
[2018-08-07] MEDS: Pantoprazole 40 mg EC Tab PO SCH (09:48)
--- NOTE | 2018-08-07 14:03 | CP.PCM.PN ---
Subjective - Date & Time of Evaluation Date of Evaluation: 08/07/18 Time of Evaluation: 08:45 - Subjective Subjective: clinically same Objective - Vital Signs/Intake and Output Vital Signs (last 24 hours): Temp Pulse Resp BP Pulse Ox 98.2 F 60 20 138/65 95 08/07/18 07:00 08/07/18 08:00 08/07/18 07:00 08/07/18 07:00 08/07/18 07:00 - Medications Medications: Current Medications Albuterol/Ipratropium (Duoneb 3 Mg/0.5 Mg (3 Ml) Ud) 3 ml INH RQ6 [facility] Last Admin: 08/07/18 13:52 Dose: 3 ml Budesonide (Pulmicort Respules) 0.5 mg INH RQ12 [facility] Last Admin: 08/07/18 08:19 Dose: 0.5 mg Diphenhydramine HCl (Benadryl) 25 mg PO Q8 PRN PRN Reason: Itching / Pruritus Last Admin: 08/07/18 00:41 Dose: 25 mg Enoxaparin Sodium (Lovenox) 40 mg SC DAILY [facility] Last Admin: 08/07/18 09:48 Dose: 40 mg Ceftriaxone Sodium 1 gm/ (Sodium Chloride) 100 mls @ 100 mls/hr IVPB Q24H [facility]; Protocol Last Admin: 08/06/18 17:52 Dose: 100 mls/hr Azithromycin 500 mg/ Sodium (Chloride) 250 mls @ 250 mls/hr IVPB Q24H [facility]; Protocol Last Admin: 08/06/18 19:30 Dose: 250 mls/hr Methylprednisolone (Solu-Medrol) 40 mg IVP Q12H [facility] Last Admin: 08/07/18 09:48 Dose: 40 mg Montelukast Sodium (Singulair) 10 mg PO HS [facility] Last Admin: 08/06/18 21:56 Dose: 10 mg Pantoprazole Sodium (Protonix Ec Tab) 40 mg PO DAILY [facility] Last Admin: 08/07/18 09:48 Dose: 40 mg - Labs Labs: 08/03/18 12:21 08/03/18 12:21 PT 10.8 SECONDS (9.7-12.2) 08/03/18 12:21 INR 1.0 08/03/18 12:21 APTT 34 SECONDS (21-34) 08/03/18 12:21 - Constitutional Appears: Well - Head Exam Head Exam: ATRAUMATIC, NORMAL INSPECTION, NORMOCEPHALIC - Eye Exam Eye Exam: EOMI, Normal appearance, PERRL Pupil Exam: NORMAL ACCOMODATION, PERRL - ENT Exam ENT Exam: Mucous Membranes Moist, Normal Exam - Neck Exam Neck Exam: Full ROM, Normal Inspection. absent: Lymphadenopathy - Respiratory Exam Respiratory Exam: Decreased Breath Sounds - Cardiovascular Exam Cardiovascular Exam: REGULAR RHYTHM, +S1, +S2 - GI/Abdominal Exam GI & Abdominal Exam: Soft, Diminished Bowel Sounds - Rectal Exam Rectal Exam: Deferred
[2018-08-07] MEDS: Azithromycin 500 MG in Sodium Chloride 0.9% 250 ML IVPB SCH (18:21)
[2018-08-08] MEDS: Albuterol-Ipratrop 3 mg / 0.5 (3 ml) UD INH SCH ×3 (01:35→13:27)
[2018-08-08] MEDS: Budesonide 0.5 mg/2 ml Inhal Susp UD INH SCH (08:04)
--- NOTE | 2018-08-08 08:10 | CP.PCM.PN ---
Subjective - Date & Time of Evaluation Date of Evaluation: 08/08/18 Time of Evaluation: 07:15 - Subjective Subjective: Patient seen and examined Still having slight cough Overall breathing much improved Afebrile Stable to discharge home P.o. prednisone Rescue inhaler Steroid inhaler Singulair Patient candidate for biologics Objective - Vital Signs/Intake and Output Vital Signs (last 24 hours): Temp Pulse Resp BP Pulse Ox 97.9 F 62 20 149/78 97 08/08/18 07:00 08/08/18 07:00 08/08/18 07:00 08/08/18 07:00 08/08/18 07:00 - Medications Medications: Current Medications Albuterol/Ipratropium (Duoneb 3 Mg/0.5 Mg (3 Ml) Ud) 3 ml INH RQ6 [facility] Last Admin: 08/08/18 08:04 Dose: 3 ml Budesonide (Pulmicort Respules) 0.5 mg INH RQ12 [facility] Last Admin: 08/08/18 08:04 Dose: 0.5 mg Diphenhydramine HCl (Benadryl) 25 mg PO Q8 PRN PRN Reason: Itching / Pruritus Last Admin: 08/07/18 22:17 Dose: 25 mg Enoxaparin Sodium (Lovenox) 40 mg SC DAILY [facility] Last Admin: 08/07/18 09:48 Dose: 40 mg Ceftriaxone Sodium 1 gm/ (Sodium Chloride) 100 mls @ 100 mls/hr IVPB Q24H [facility]; Protocol Last Admin: 08/07/18 18:21 Dose: 100 mls/hr Azithromycin 500 mg/ Sodium (Chloride) 250 mls @ 250 mls/hr IVPB Q24H [facility]; Protocol Last Admin: 08/07/18 18:21 Dose: 250 mls/hr Methylprednisolone (Solu-Medrol) 40 mg IVP Q12H [facility] Last Admin: 08/07/18 22:05 Dose: 40 mg Montelukast Sodium (Singulair) 10 mg PO HS [facility] Last Admin: 08/07/18 22:05 Dose: 10 mg Pantoprazole Sodium (Protonix Ec Tab) 40 mg PO DAILY [facility] Last Admin: 08/07/18 09:48 Dose: 40 mg - Labs Labs: 08/03/18 12:21 08/03/18 12:21 PT 10.8 SECONDS (9.7-12.2) 11/07/18 12:21 INR 1.0 08/03/18 12:21 APTT 34 SECONDS (21-34) 08/03/18 12:21 Assessment and Plan (1) Asthma exacerbation Status: Acute
[2018-08-08] MEDS: Pantoprazole 40 mg EC Tab PO SCH (09:53)
[2018-08-08] MEDS: MethylPREDNISolone 40 mg Vial IVP SCH (09:53)
[2018-08-08] MEDS: Enoxaparin 40 mg Syringe SC SCH (09:53)
--- NOTE | 2018-08-08 11:52 | CP.PCM.CON ---
History of Present Illness - History of Present Illness History of Present Illness: 42 y/o F Admitted on 08/03/18 for acute on chronic asthma excaerbation triggered by 1-2 weeks of URI sx's. We are called due to a self sustained ASX arrythmia on 08/04/2018 10:06. Since patient has been ASX and improving with IV ABX. PMHX: ASthma, Avascular necrosis surgery R. shoulder, Rheum arthritis. Denies any cardiac problems. Denies CP, CHF sx's, N/V/D. Active ordinarily mild-mod with ADLs. Review of Systems - Review of Systems All systems: reviewed and no additional remarkable complaints except Past Patient History - Infectious Disease Hx of Infectious Diseases: None - Past Medical History & Family History Past Medical History?: Yes - Past Social History Smoking Status: Never Smoked - CARDIAC Hx Cardiac Disorders: No - PULMONARY Hx Respiratory Disorders: Yes Hx Asthma: Yes (HOSPITALIZED NOVEMBER 2015) Hx Bronchitis: Yes Hx Pneumonia: Yes - NEUROLOGICAL Hx Neurological Disorder: No - HEENT Hx HEENT Problems: No - RENAL Hx Chronic Kidney Disease: Yes Hx Kidney Stones: Yes (LASER [place].) - ENDOCRINE/METABOLIC Hx Endocrine Disorders: No - HEMATOLOGICAL/ONCOLOGICAL Hx Blood Disorders: No - INTEGUMENTARY Hx Dermatological Problems: No - MUSCULOSKELETAL/RHEUMATOLOGICAL Hx Falls: No Hx Fractures: Yes (Toe (3 years ago)) Hx Rheumatoid Arthritis: Yes - GASTROINTESTINAL Hx Gastrointestinal Disorders: Yes Hx Gall Bladder Disease: Yes - GENITOURINARY/GYNECOLOGICAL Hx Genitourinary Disorders: No - PSYCHIATRIC Hx Substance Use: No - SURGICAL HISTORY Hx Surgeries: Yes Hx Cholecystectomy: Yes Other/Comment: right arm sx for vascular necrosis - ANESTHESIA Hx Anesthesia: Yes Hx Anesthesia Reactions: No Hx Malignant Hyperthermia: No Has any member of the family had a problem w/ anesthesia?: No Meds Allergies/Adverse Reactions: Allergies Allergy/AdvReac Type Severity Reaction Status Date / Time No Known Allergies Allergy Verified 03/15/18 12:00 - Medications Medications: Current Medications Albuterol/Ipratropium (Duoneb 3 Mg/0.5 Mg (3 Ml) Ud) 3 ml INH RQ6 KAYLYNN Last Admin: 08/08/18 08:04 Dose: 3 ml Budesonide (Pulmicort Respules) 0.5 mg INH RQ12 KAYLYNN Last Admin: 08/08/18 08:04 Dose: 0.5 mg Diphenhydramine HCl (Benadryl) 25 mg PO Q8 PRN PRN Reason: Itching / Pruritus Last Admin: 08/07/18 22:17 Dose: 25 mg Enoxaparin Sodium (Lovenox) 40 mg SC DAILY [facility] Last Admin: 08/08/18 09:53 Dose: 40 mg Ceftriaxone Sodium 1 gm/ (Sodium Chloride) 100 mls @ 100 mls/hr IVPB Q24H [facility]; Protocol Last Admin: 08/07/18 18:21 Dose: 100 mls/hr Azithromycin 500 mg/ Sodium (Chloride) 250 mls @ 250 mls/hr IVPB Q24H KAYLYNN; Protocol Last Admin: 08/07/18 18:21 Dose: 250 mls/hr Methylprednisolone (Solu-Medrol) 40 mg IVP Q12H [facility] Last Admin: 08/08/18 09:53 Dose: 40 mg Montelukast Sodium (Singulair) 10 mg PO HS [facility] Last Admin: 08/07/18 22:05 Dose: 10 mg Pantoprazole Sodium (Protonix Ec Tab) 40 mg PO DAILY [facility] Last Admin: 08/08/18 09:53 Dose: 40 mg Physical Exam - Constitutional Appears: No Acute Distress - Head Exam Head Exam: ATRAUMATIC, NORMAL INSPECTION, NORMOCEPHALIC - Eye Exam Eye Exam: EOMI, Normal appearance, PERRL - ENT Exam ENT Exam: Mucous Membranes Moist, Normal Oropharynx - Neck Exam Neck exam: Positive for: Normal Inspection. Negative for: Lymphadenopathy, Tenderness, Thyromegaly - Respiratory Exam Respiratory Exam: Clear to Auscultation Bilateral, Rhonchi, Wheezes (slight), NORMAL BREATHING PATTERN - Cardiovascular Exam Cardiovascular Exam: REGULAR RHYTHM, +S1, +S2. absent: Systolic Murmur - GI/Abdominal Exam GI & Abdominal Exam: Normal Bowel Sounds, Soft, Tenderness - Extremities Exam Extremities exam: Positive for: calf tenderness, normal inspection. Negative for: pedal edema - Neurological Exam Neurological exam: Alert, CN II-XII Intact, Oriented x3 - Psychiatric Exam Psychiatric exam: Normal Affect, Normal Mood - Skin Skin Exam: Normal Color, Warm Results - Vital Signs Recent Vital Signs: Last Vital Signs Temp 97.9 F 08/08/18 07:00 Pulse 65 08/08/18 07:00 Resp 20 08/08/18 07:00 BP 149/78 08/08/18 07:00 Pulse Ox 97 08/08/18 07:00 - Labs Result Diagrams: 08/03/18 12:21 08/03/18 12:21 - EKG Data EKG Interpreted by: Myself Assessment & Plan - Assessment and Plan (Free Text) Assessment: Episode of arrythmia 08/04/18: is likely c/w SVT with abberancy and not VT, likely triggered by asthma Echo ordered: images rev. by me -> Normal LV function, no significant valvular pathology. EKG: baseline: NSR, non-specific ST changes Patient does not report prior cardiovascular illness and does not report sx's suspicious for CHF or angina --> Suggest weight loss, healthy diet and exercise. --> BP is normal without RX Acute on chronic asthma Improving with ABX and pulm supportive care D/C planning from a cardiac standpoint when pulm sx's improve No additional cardiac w/u planned. - Date & Time Date: 08/08/18 Time: 11:59
[2018-08-08 15:41] VITALS: BP 122/77; PULSE 84; TEMP 97.6; O2SAT 96
--- NOTE | 2018-08-08 16:42 | CP.PCM.PN ---
Subjective - Date & Time of Evaluation Date of Evaluation: 08/08/18 Time of Evaluation: 16:42 - Subjective Subjective: PATIENT SEEN AND EXAMINED AT THE BEDSIDE Objective - Vital Signs/Intake and Output Vital Signs (last 24 hours): Temp Pulse Resp BP Pulse Ox 97.6 F 84 20 122/77 96 08/08/18 15:41 08/08/18 15:41 08/08/18 15:41 08/08/18 15:41 08/08/18 15:41 - Medications Medications: Current Medications Albuterol/Ipratropium (Duoneb 3 Mg/0.5 Mg (3 Ml) Ud) 3 ml INH RQ6 KAYLYNN Last Admin: 08/08/18 13:27 Dose: 3 ml Budesonide (Pulmicort Respules) 0.5 mg INH RQ12 KAYLYNN Last Admin: 08/08/18 08:04 Dose: 0.5 mg Diphenhydramine HCl (Benadryl) 25 mg PO Q8 PRN PRN Reason: Itching / Pruritus Last Admin: 08/07/18 22:17 Dose: 25 mg Enoxaparin Sodium (Lovenox) 40 mg SC DAILY [facility] Last Admin: 08/08/18 09:53 Dose: 40 mg Ceftriaxone Sodium 1 gm/ (Sodium Chloride) 100 mls @ 100 mls/hr IVPB Q24H KAYLYNN; Protocol Last Admin: 08/07/18 18:21 Dose: 100 mls/hr Azithromycin 500 mg/ Sodium (Chloride) 250 mls @ 250 mls/hr IVPB Q24H KAYLYNN; Protocol Last Admin: 08/07/18 18:21 Dose: 250 mls/hr Methylprednisolone (Solu-Medrol) 40 mg IVP DAILY [facility] Montelukast Sodium (Singulair) 10 mg PO HS KAYLYNN Last Admin: 08/07/18 22:05 Dose: 10 mg Pantoprazole Sodium (Protonix Ec Tab) 40 mg PO DAILY KAYLYNN Last Admin: 08/08/18 09:53 Dose: 40 mg - Labs Labs: 08/03/18 12:21 08/03/18 12:21 PT 10.8 SECONDS (9.7-12.2) 08/03/18 12:21 INR 1.0 08/03/18 12:21 APTT 34 SECONDS (21-34) 08/03/18 12:21 Assessment and Plan - Assessment and Plan (Free Text) Assessment: FOLLOW UP WITH DR Robin NOLAN IN HIS OFFICE ----CALL FOR APPOINTMENT FOLLOW UP WITH DR LEMONS IN HIS OFFICE ----CALL FOR APPOINTMENT CONTINUE HOME MEDICATION ORDER NEW PRESCRIPTION GIVEN PREDNISONE TAPER ALBUTEROL TX ACTIVITY TOLERATED CALL DR Robin NOLAN OR GO TO THE EMERGENCY ROOM IF SYMPTOM RETURN OR WORSENING
--- NOTE | 2018-08-08 17:43 | CP.PCM.PN ---
Subjective - Date & Time of Evaluation Date of Evaluation: 08/08/18 Time of Evaluation: 09:30 - Subjective Subjective: clinically same Objective - Vital Signs/Intake and Output Vital Signs (last 24 hours): Temp Pulse Resp BP Pulse Ox 97.6 F 84 20 122/77 96 08/08/18 15:41 08/08/18 15:41 08/08/18 15:41 08/08/18 15:41 08/08/18 15:41 - Medications Medications: Current Medications Albuterol/Ipratropium (Duoneb 3 Mg/0.5 Mg (3 Ml) Ud) 3 ml INH RQ6 KAYLYNN Last Admin: 08/08/18 13:27 Dose: 3 ml Budesonide (Pulmicort Respules) 0.5 mg INH RQ12 KAYLYNN Last Admin: 08/08/18 08:04 Dose: 0.5 mg Diphenhydramine HCl (Benadryl) 25 mg PO Q8 PRN PRN Reason: Itching / Pruritus Last Admin: 08/07/18 22:17 Dose: 25 mg Enoxaparin Sodium (Lovenox) 40 mg SC DAILY [facility] Last Admin: 08/08/18 09:53 Dose: 40 mg Ceftriaxone Sodium 1 gm/ (Sodium Chloride) 100 mls @ 100 mls/hr IVPB Q24H KAYLYNN; Protocol Last Admin: 08/07/18 18:21 Dose: 100 mls/hr Azithromycin 500 mg/ Sodium (Chloride) 250 mls @ 250 mls/hr IVPB Q24H KAYLYNN; Protocol Last Admin: 08/07/18 18:21 Dose: 250 mls/hr Methylprednisolone (Solu-Medrol) 40 mg IVP DAILY [facility] Montelukast Sodium (Singulair) 10 mg PO HS [facility] Last Admin: 08/07/18 22:05 Dose: 10 mg Pantoprazole Sodium (Protonix Ec Tab) 40 mg PO DAILY KAYLYNN Last Admin: 08/08/18 09:53 Dose: 40 mg - Labs Labs: 08/03/18 12:21 08/03/18 12:21 PT 10.8 SECONDS (9.7-12.2) 08/03/18 12:21 INR 1.0 08/03/18 12:21 APTT 34 SECONDS (21-34) 08/03/18 12:21 - Constitutional Appears: Well - Head Exam Head Exam: ATRAUMATIC, NORMAL INSPECTION, NORMOCEPHALIC - Eye Exam Eye Exam: EOMI, Normal appearance, PERRL Pupil Exam: NORMAL ACCOMODATION, PERRL - ENT Exam ENT Exam: Mucous Membranes Moist, Normal Exam - Neck Exam Neck Exam: Full ROM, Normal Inspection. absent: Lymphadenopathy - Respiratory Exam Respiratory Exam: Decreased Breath Sounds - Cardiovascular Exam Cardiovascular Exam: REGULAR RHYTHM, +S1, +S2 - GI/Abdominal Exam GI & Abdominal Exam: Soft, Diminished Bowel Sounds - Rectal Exam Rectal Exam: Deferred
[2018-08-09] MEDS ORDERED: MethylPREDNISolone 40 mg Vial IVP SCH (10:00)
== END 2018-08-08 18:16 | disposition home or self-care (01) | DRG 141 ==
LOC: C.ER 11:09 → C.9E 14:13 → C.5S 15:03
PROVIDERS: ADMIT Internal Medicine Nephrology; ATTEND Internal Medicine Nephrology
DX: J45.901 Unspecified asthma with (acute) exacerbation (principal); N18.9 Chronic kidney disease, unspecified; I47.1 Supraventricular tachycardia; M06.9 Rheumatoid arthritis, unspecified; Z87.01 Personal history of pneumonia (recurrent); Z87.442 Personal history of urinary calculi; Z90.49 Acquired absence of other specified parts of digestive tract; Z23 Encounter for immunization

== ENCOUNTER 2018-10-16 12:10 | Emergency (ER) | payer MEDICAID ==
[2018-10-16 12:11] VITALS: BMI 30.9
[2018-10-16] MEDS ORDERED: Albuterol-Ipratrop 3 mg / 0.5 (3 ml) UD ONE ×2 (12:22→12:50)
[2018-10-16] MEDS ORDERED: Sodium Chloride 0.9% 1,000 ML IV ONE (12:28)
[2018-10-16] MEDS ORDERED: Magnesium Sulfate 1 gm in D5W 1 GM/100 ML BAG IV ONE (12:31)
[2018-10-16] MEDS ORDERED: Albuterol-Ipratrop 3 mg / 0.5 (3 ml) UD IH STA (12:31)
--- NOTE | 2018-10-16 12:33 | C.PDOC ---
History Of Present Illness 42 years old female with PMHx of asthma, no hx of intubation, no recent ( less than 5yrs) hx of ICU admission, presents to ED for evaluation of asthma exacerbation that gradually developed yesterday. Patient reports, "use inhaler at home but nebulizer machine does not work". Patient c/o some chest tightness associated with dyspnea, wheezing worsen since today AM. Otherwise, denies recent illness, fever, chills, headache, dizziness, chest pain, diaphoresis, palpitation, abd. pain, N/V, back pain, UTI sx. Patient states symptoms are usually exacerbated by cold weather. Time Seen by Provider: 10/16/18 12:15 Chief Complaint (Nursing): Respiratory Distress History Per: Patient History/Exam Limitations: no limitations Onset/Duration Of Symptoms: Hrs, Gradual, Worse Since Current Symptoms Are (Timing): Still Present Current Respiratory Medications: See Home Med List Recent travel outside of the [place]: No Past Medical History Reviewed: Historical Data, Nursing Documentation, Vital Signs Vital Signs: Last Vital Signs Temp 98.1 F 10/16/18 12:18 Pulse 108 H 10/16/18 12:18 Resp 18 10/16/18 12:22 BP 110/70 10/16/18 12:18 Pulse Ox 98 10/16/18 12:22 - Medical History PMH: Anxiety, Asthma (HOSPITALIZED NOVEMBER 2015), Bronchitis, Depression (NOT ON MED. AT THIS TIME(01/02/16)), Fractures (Toe (3 years ago)), Gall Bladder Disease, Kidney Stones (LASER [place] Pneumonia, Chronic Kidney Disease, Rheumatoid Arthritis Surgical History: Cholecystectomy - [facility] Procedures INFLUENZA VACCINATION (08/21/13) NON-INVASIVE MECHANICAL VENTILATION (12/11/14) VACCINATION NEC (08/21/13) Family History: States: Unknown Family Hx - Social History Hx Tobacco Use: No Hx Alcohol Use: No Hx Substance Use: No - Immunization History Hx Tetanus Toxoid Vaccination: No Hx Influenza Vaccination: Yes (Up to date) Hx Pneumococcal Vaccination: No Review Of Systems Except As Marked, All Systems Reviewed And Found Negative. Constitutional: Negative for: Fever, Chills ENT: Negative for: Throat Pain Cardiovascular: Negative for: Chest Pain, Palpitations, Orthopnea, Paroxysmal Noc. Dyspnea Respiratory: Positive for: Shortness of Breath, Wheezing. Negative for: Cough, Pleuritic Pain, Sputum Gastrointestinal: Negative for: Nausea, Vomiting, Abdominal Pain, Diarrhea Skin: Negative for: Rash Neurological: Negative for: Weakness, Numbness, Altered Mental Status, Headache, Dizziness Physical Exam - Physical Exam Appears: Well, Non-toxic, No Acute Distress Skin: Normal Color, Warm, Dry Head: Normacephalic Eye(s): bilateral: PERRL Nose: No Flaring, No Discharge Oral Mucosa: Moist Neck: Trachea Midline, Supple Cardiovascular: Rhythm Regular, No Murmur, No JVD Respiratory: No Decreased Breath Sounds, No Accessory Muscle Use, Wheezing (diffuse B/L exp wheezing) Gastrointestinal/Abdominal: Soft, No Tenderness, No Distention, No Guarding Extremity: Normal ROM, No Pedal Edema, No Deformity, No Swelling Neurological/Psych: Oriented x3, Normal Speech ED Course And Treatment - Laboratory Results Result Diagrams: 10/16/18 13:08 10/16/18 13:08 ECG: Interpreted By Me, Viewed By Me ECG Rhythm: Sinus Tachycardia Interpretation Of ECG: Sinus tachy@108/min, no acute T wave or ST-T changes O2 Sat by Pulse Oximetry: 98 (RA) Pulse Ox Interpretation: Normal - Radiology CXR: Interpreted by Me, Read By Radiologist CXR Interpretation: Yes: No Acute Disease - Other Rad CXR X-Ray: Viewed By Me, Read By Radiologist Interpretation: Date of service: 10/16/2018. HISTORY: SOB. COMPARISON: Comparison chest 08/03/2018. FINDINGS: LUNGS: No active pulmonary disease. PLEURA: No significant pleural effusion identified, no pneumothorax apparent. CARDIOVASCULAR: No aortic atherosclerotic calcification present. Normal cardiac size. No pulmonary vascular congestion. OSSEOUS STRUCTURES: No significant abnormalities. VISUALIZED UPPER ABDOMEN: Normal. OTHER FINDINGS: None. IMPRESSION: No active disease. Progress Note: Administered IV Fluids, Solu-medrol, magnesium sulfate, and duoneb. Ordered EKG, blood work, CXR, and urinalysis. on re-eval at 1:20PM, pt repots mod improvement in sx, on phone, not SOB, not in resp. distress. AFebrile, hemodynamicaly stable. PulsEOx 98% RA. Lungs: slightly improved exp wheezing B/L, BS equal B/L. At 3:10, pt reports mod improvement in sx. Lungs: scattered exp wheezing bibasilar, BS equal B/L. Pt sts, ' feels much better" and wish to go home now. Pulse Ox monitor by me, while OBS pt at bedside and registered PulseOx to be 95-97% RA. Blood work review and appears baseline, no acute changes. UA- early UTI, Ucx- pending. Pt advised on course of ds. ref. to F/u with PMD in 1-2 days for re-eavl. if any changes, worsening-return to ED for re-evaluation. Pt understand and agrees with plan. Disposition Counseled Patient/Family Regarding: Studies Performed, Diagnosis, Need For Followup, Rx Given - Disposition Referrals: Shaik Donahue MD [Staff Provider] - Disposition: HOME/ ROUTINE Disposition Time: 15:38 Condition: STABLE Additional Instructions: Encourage fluids take medication as prescribed nebulizer treatment every 4 hours for 2-3 days Follow up with PMD in 2-3 days for re-evaluation. return to Ed if any worsening or new changes. Prescriptions: Albuterol 0.083% [Albuterol 0.083% Inhal Bekah (2.5 mg/3 ml) UD] 2.5 mg IH Q6 #50 neb Cefdinir [Omnicef] 300 mg PO BID #14 cap Nebulizer [Aeroeclipse II] 1 each MC DAILY #1 each Prednisone [Deltasone] 60 mg PO DAILY #12 tablet Instructions: Asthma in Adults, Urinary Tract Infections in Adults Forms: [facility] (Estonian) - Clinical Impression Clinical Impression: Asthma exacerbation, UTI (urinary tract infection) - PA / CANE CUTTER / Resident Statement MD/DO has reviewed & agrees with the documentation as recorded. - Scribe Statement The provider has reviewed the documentation as recorded by the Lauraibvinod Horn All medical record entries made by the Rad were at my direction and personally dictated by me. I have reviewed the chart and agree that the record accurately reflects my personal performance of the history, physical exam, medical decision making, and the department course for this patient. I have also personally directed, reviewed, and agree with the discharge instructions and disposition.
[2018-10-16] MEDS ORDERED: Magnesium Sulfate 1 gm in D5W 2 GM/200 ML BAG IVPB ONE (12:40)
[2018-10-16] MEDS ORDERED: Albuterol 0.083% Inhal Sol (2.5 mg/3 mL) UD ONE (12:41)
[2018-10-16] MEDS ORDERED: Sodium Chloride 0.9% 1,000 ML ONE (12:41)
--- NOTE | 2018-10-16 13:03 | RAD ---
Date of service: 10/16/2018 HISTORY: SOB COMPARISON: Comparison chest 08/03/2018 FINDINGS: LUNGS: No active pulmonary disease. PLEURA: No significant pleural effusion identified, no pneumothorax apparent. CARDIOVASCULAR: No aortic atherosclerotic calcification present. Normal cardiac size. No pulmonary vascular congestion. OSSEOUS STRUCTURES: No significant abnormalities. VISUALIZED UPPER ABDOMEN: Normal. OTHER FINDINGS: None. IMPRESSION: No active disease.
[2018-10-16 13:15] LABS: BASO # 0.1 K/uL (0.0-0.2); BASO % 0.7 % (0.0-2.0); EOS # 0.4 K/uL (0.0-0.7); HEMOGLOBIN 14.4 g/dL (11.0-16.0); LYMPH # 4.2 K/uL (1.0-4.3); LYMPH % 40.4 % (20.0-40.0); MEAN CELL VOLUME 90.4 fL (81.0-99.0); MEAN CORPUSCULAR HGB CONC 33.2 g/dL (33.0-37.0); MEAN PLATELET VOLUME 8.9 fL (7.2-11.7); MONO # 0.7 K/uL (0.0-0.8); MONO % 6.8 % (0.0-10.0); NEUT % 48.1 % (50.0-75.0); RBC 4.81 Mil/uL (3.80-5.20); RED CELL DISTRIBUTION WIDTH 14.6 % (11.5-14.5); WHITE BLOOD COUNT 10.5 K/uL (4.8-10.8)
[2018-10-16 13:27] LABS: ALB/GLOB RATIO 1.4 (1.0-2.1); ALBUMIN 4.2 g/dL (3.5-5.0); ALT/SGPT 25 U/L (9-52); AST/SGOT 43 U/L (14-36); BLOOD UREA NITROGEN 11 mg/dL (7-17); CALCIUM 8.4 mg/dl (8.6-10.4); GFR NON-AFRICAN AMERICAN > 60
[2018-10-16 13:42] LABS: INR 0.9
[2018-10-16 13:46] LABS: HCG,QUALITATIVE URINE NEGATIVE (NEGATIVE)
[2018-10-16 13:52] LABS: SQUAMOUS EPITHIAL 5 /hpf (0-5); URINE BACTERIA RARE (<OCC); URINE BILIRUBIN NEGATIVE (NEGATIVE); URINE BLOOD NEGATIVE (NEGATIVE); URINE CLARITY Hazy (Clear); URINE COLOR Straw (YELLOW); URINE GLUCOSE (UA) NORMAL (Normal); URINE LEUKOCYTE ESTERASE 1+ Leu/uL (Negative); URINE PROTEIN NEGATIVE (NEGATIVE); URINE UROBILINOGEN NORMAL mg/dL (0.2-1.0)
[2018-10-16 14:17] LABS: PROTHROMBIN TIME 9.9 SECONDS (9.7-12.2)
[2018-10-16 16:20] VITALS: BP 109/67; PULSE 102; RESP 19; TEMP 98.5; O2SAT 96
--- NOTE | 2018-10-17 20:49 | CARD ---
APPROVED REPORT Date of service: 10/16/2018 EKG Measurement Heart [id number] <Conclusion> Sinus tachycardia Nonspecific T wave abnormality Abnormal ECG
== END 2018-10-16 16:48 | disposition home or self-care (01) ==
LOC: C.ER 12:10
DX: J45.901 Unspecified asthma with (acute) exacerbation (principal); N39.0 Urinary tract infection, site not specified; M06.9 Rheumatoid arthritis, unspecified; N18.9 Chronic kidney disease, unspecified
CPT/HCPCS: 71045; 80053; 81001; 83735; 84484; 84703; 85025; 85610; 85730; 87086; 87181; 93005; 94640; 96374; 96375; 96376; 99285; J0696; J3475; J7030

== ENCOUNTER 2018-10-28 12:12 | Outpatient (CLI) | payer MEDICAID | END 2018-10-28 12:13 | disposition home or self-care (01) | LOC: C.RADH 12:12 | DX: Z01.810 Encounter for preprocedural cardiovascular examination (principal) ==

== ENCOUNTER 2019-02-06 11:56 | Emergency (ER) | payer MEDICAID ==
[2019-02-06 11:57] VITALS: BMI 30.9
[2019-02-06] MEDS ORDERED: Albuterol-Ipratrop 3 mg / 0.5 (3 ml) UD ONE ×2 (12:14→13:48)
[2019-02-06] MEDS ORDERED: Albuterol-Ipratrop 3 mg / 0.5 (3 ml) UD INH STA ×2 (12:15→13:25)
[2019-02-06] MEDS ORDERED: Sodium Chloride 0.9% 500 ML IV ONE ×2 (12:35→13:07)
--- NOTE | 2019-02-06 12:40 | C.PDOC ---
History Of Present Illness 43 year old female presents to ED c/o of SOB and wheezing for 3 days with productive cough that began today. She has a PMHx of asthma, and states she has been using albuterol, nebulizer and inhaler at home. Patient has been previously admitted for multiple times for asthma. She has no history of intubations. Patient denies fever, chest pain, palpitations, abdominal pain, nausea/vomiting/diarrhea. Time Seen by Provider: 02/06/19 12:19 Chief Complaint (Nursing): Shortness Of Breath History Per: Patient History/Exam Limitations: no limitations Onset/Duration Of Symptoms: Days (3) Current Symptoms Are (Timing): Still Present Current Respiratory Medications: See Home Med List Severity: Moderate Associated Symptoms: Productive Cough. denies: Fever, Chills, Chest Pain, Bloody Cough Past Medical History Reviewed: Historical Data, Nursing Documentation, Vital Signs Vital Signs: Last Vital Signs Temp 99.2 F 02/06/19 12:12 Pulse 83 02/06/19 12:12 Resp 18 02/06/19 12:12 BP 137/83 02/06/19 12:12 Pulse Ox 99 02/06/19 12:12 Primary Care Provider: Shaik Donahue - Medical History PMH: Anxiety, Asthma, Bronchitis, Depression, Fractures (Toe (3 years ago)), Gall Bladder Disease, Kidney Stones (LASER [place].), Pneumonia, Chronic Kidney Disease, Rheumatoid Arthritis Surgical History: Cholecystectomy - [facility] Procedures INFLUENZA VACCINATION (08/21/13) NON-INVASIVE MECHANICAL VENTILATION (12/11/14) VACCINATION NEC (08/21/13) Family History: States: No Known Family Hx - Social History Hx Tobacco Use: No Hx Alcohol Use: No Hx Substance Use: No - Immunization History Hx Tetanus Toxoid Vaccination: No Hx Influenza Vaccination: Yes Hx Pneumococcal Vaccination: No Review Of Systems Constitutional: Negative for: Fever, Chills, Weakness Cardiovascular: Negative for: Chest Pain, Palpitations Respiratory: Positive for: Cough, Shortness of Breath, Sputum, Wheezing. Negat bibiana for: Hemoptysis Gastrointestinal: Negative for: Nausea, Vomiting, Abdominal Pain, Diarrhea Genitourinary: Negative for: Dysuria, Hematuria Musculoskeletal: Negative for: Leg Pain Physical Exam - Physical Exam Appears: Well, Non-toxic, Other (speaking full sentences, audibly wheezing) Skin: Normal Color, Warm, Dry Head: Normacephalic Eye(s): bilateral: Normal Inspection Oral Mucosa: Moist Neck: Supple Cardiovascular: Rhythm Regular Respiratory: Accessory Muscle Use (mild), No Rales, No Rhonchi, Wheezing (diffuse expiratory wheezing bilaterally) Gastrointestinal/Abdominal: Normal Exam, Bowel Sounds, Soft, No Tenderness Extremity: Normal ROM, No Pedal Edema, No Calf Tenderness Pulses: Left Dorsalis Pedis: Normal, Right Dorsalis Pedis: Normal Neurological/Psych: Oriented x3 ED Course And Treatment - Laboratory Results Result Diagrams: 02/06/19 13:03 02/06/19 13:03 ECG: Interpreted By Me, Viewed By Me (sinus rhythm 89 bopm, normal axis, no acute ST/T wave changes) ECG Rhythm: Sinus Rhythm ECG Interpretation: No Acute Changes O2 Sat by Pulse Oximetry: 99 (in RA) Pulse Ox Interpretation: Normal - Other Rad CXR X-Ray: Viewed By Me Interpretation: IMPRESSION: No acute pulmonary pathology identified. Progress Note: Blood work, EKG, UA, Upreg, CXR ordered and reviewed. Patient given albuterol INH, Solu-medrol IVP, IV mag sulfate, and IV NS bolus. Reevaluation Time: 17:15 Reassessment Condition: Improved (On reassessment, patient is resting comfortably and states she feels much better. On exam, she still has occasional mild/scant wheezing. Patient offered observation, but prefers to be discharged home with meds. Rxs for prednisone and albuterol given. Patient instructed to follow up with PMD in 1-2 days, and she understands she should return to ED immediately if symptoms worsen.) Critical Care Time - Critical Care Note Total Time (in mins): 50 Documented critical care: time excludes all time spent performing seperately billable procedures. Disposition Counseled Patient/Family Regarding: Studies Performed, Diagnosis, Need For Followup, Rx Given - Disposition Referrals: Shaik Donahue MD [Staff Provider] - Disposition: HOME/ ROUTINE Disposition Time: 17:15 Condition: STABLE Additional Instructions: FOLLOW UP WITH YOUR DOCTOR IN 1-2 DAYS USE MEDICATIONS DIRECTED/NEEDED RETURN TO ER IF SYMPTOMS WORSEN Prescriptions: Albuterol 0.5% [Albuterol 0.5% Inhal Bekah (2.5 mg/0.5 ml) UD] 2.5 mg IH Q6 PRN #1 bottle PRN Reason: Wheezing Albuterol HFA [Ventolin HFA 90 mcg/actuation (8 g)] 0.09 mg IH Q4 PRN #1 puff PRN Reason: Wheezing predniSONE [predniSONE Tab] 40 mg PO DAILY #10 tab Instructions: Asthma, Adult (DC) Forms: [employer] (Greek) Print Language: LAO - Clinical Impression Clinical Impression: Asthma exacerbation - Scribe Statement The provider has reviewed the documentation as recorded by the Scribe (Valerie Farr) All medical record entries made by the Scribe were at my direction and personally dictated by me. I have reviewed the chart and agree that the record accurately reflects my personal performance of the history, physical exam, medical decision making, and the department course for this patient. I have also personally directed, reviewed, and agree with the discharge instructions and disposition.
--- NOTE | 2019-02-06 12:53 | RAD ---
HISTORY: SOB COMPARISON: Chest x-ray performed 10/28/18 TECHNIQUE: Chest, one view. FINDINGS: LUNGS: No focal consolidation. Please note that chest x-ray has limited sensitivity for the detection of pulmonary masses. PLEURA: No significant pleural effusion identified. No definite pneumothorax . CARDIOVASCULAR: Heart size appears within normal limits. Atherosclerotic calcifications present. OSSEOUS STRUCTURES: Right shoulder arthroplasty. VISUALIZED UPPER ABDOMEN: Unremarkable. OTHER FINDINGS: None. IMPRESSION: No acute pulmonary pathology identified.
[2019-02-06 13:06] LABS: BASO # 0.1 K/uL (0.0-0.2); BASO % 0.7 % (0.0-2.0); EOS # 0.6 K/uL (0.0-0.7); EOS % 7.4 % (0.0-4.0); HEMOGLOBIN 13.7 g/dL (11.0-16.0); LYMPH # 2.4 K/uL (1.0-4.3); LYMPH % 30.7 % (20.0-40.0); MEAN CELL VOLUME 86.1 fL (81.0-99.0); MEAN CORPUSCULAR HEMOGLOBIN 28.5 pg (27.0-31.0); MEAN CORPUSCULAR HGB CONC 33.1 g/dL (33.0-37.0); MEAN PLATELET VOLUME 8.3 fL (7.2-11.7); MONO # 0.4 K/uL (0.0-0.8); MONO % 5.6 % (0.0-10.0); NEUT # 4.4 K/uL (1.8-7.0); NEUT % 55.6 % (50.0-75.0); RBC 4.82 Mil/uL (3.80-5.20); RED CELL DISTRIBUTION WIDTH 13.6 % (11.5-14.5)
[2019-02-06 13:28] LABS: ALB/GLOB RATIO 1.2 (1.0-2.1); ALBUMIN 4.2 g/dL (3.5-5.0); ALT/SGPT 24 U/L (9-52); AST/SGOT 39 U/L (14-36); BLOOD UREA NITROGEN 10 mg/dL (7-17); CALCIUM 9.2 mg/dl (8.6-10.4); GFR NON-AFRICAN AMERICAN > 60
[2019-02-06 13:32] LABS: HCG,QUALITATIVE URINE NEGATIVE (NEGATIVE)
[2019-02-06 13:38] LABS: SQUAMOUS EPITHIAL 3 /hpf (0-5); URINE BACTERIA RARE (<OCC); URINE BILIRUBIN NEGATIVE (NEGATIVE); URINE BLOOD 3+ (NEGATIVE); URINE CLARITY Clear (Clear); URINE COLOR Yellow (YELLOW); URINE GLUCOSE (UA) NORMAL (Normal); URINE LEUKOCYTE ESTERASE 1+ Leu/uL (Negative); URINE PROTEIN NEGATIVE (NEGATIVE); URINE UROBILINOGEN NORMAL mg/dL (0.2-1.0)
[2019-02-06] MEDS ORDERED: Magnesium Sulfate 1 gm in D5W 1 GM/100 ML BAG IV ONE (14:24)
[2019-02-06] MEDS ORDERED: Albuterol 0.083% Inhal Sol (2.5 mg/3 mL) UD IH STA ×2 (14:24→14:25)
[2019-02-06] MEDS ORDERED: Magnesium Sulfate 1 gm in D5W 2 GM/200 ML BAG IVPB ONE (14:40)
[2019-02-06] MEDS ORDERED: Albuterol 0.083% Inhal Sol (2.5 mg/3 mL) UD ONE (15:32)
[2019-02-06 17:24] VITALS: BP 120/68; PULSE 94; RESP 18; TEMP 98
--- NOTE | 2019-02-08 13:40 | CARD ---
APPROVED REPORT Date of service: 02/06/2019 EKG Measurement Heart [id number] MS [id number] <Conclusion> Normal sinus rhythm Nonspecific T wave abnormality Borderline
[2019-02-12 08:12] VITALS: O2SAT 99
== END 2019-02-06 17:24 | disposition home or self-care (01) ==
LOC: C.ER 11:56
DX: J45.901 Unspecified asthma with (acute) exacerbation (principal); M06.9 Rheumatoid arthritis, unspecified; N18.9 Chronic kidney disease, unspecified; F32.9 Major depressive disorder, single episode, unspecified; F41.9 Anxiety disorder, unspecified; Z87.442 Personal history of urinary calculi
CPT/HCPCS: 71045; 80053; 81001; 84703; 85025; 93005; 94150; 94640; 96365; 96366; 96375; 99285; J2930; J3475; J7040